=== PATIENT | female | born 1950 | race Caucasian/White ===

== ENCOUNTER 2016-07-16 20:22 | Emergency (ER) | payer MEDICARE ==
[~2016-07-16] VITALS: Ht 157.5 cm; Wt 70.0 kg
[~2016-07-16 20:22] MED LIST: ADLT ASA LOW81 MG PO; ASPIR-TRIN325 MG OR; ATENOLOL50 MG PO; BACTRIM DS1 TAB PO; CALCIUM + D600 MG PO; CALCIUM CHEL1 CAP PO; CINNAMON500 MG PO; CIPRO500 MG PO; CIPROFLOXACN500 MG PO; DITROPAN XL5 MG PO; FISH OIL1000 MG PO; KLOR-CON 1010 MEQ PO; LASIX20 MG PO; LIBRIUM10 MG PO; LIPITOR10 M1 PO; LISINOPRIL10 MG PO; LISINOPRIL20 MG PO; NITROLINGUAL SPRAY D TL; NORCO1 TA1 PO; ONDANSETRON4 MG PO; PAROXETINE20 MG PO; PAXIL40 MG PO; SIMVASTATIN40 MG PO; TENORMIN25 MG PO; TORADOL OR; TRAMADOL HCL50 MG PO; ULTRAM50 MG PO; VITAMIN B-1100 M1 PO; VITAMIN C1000 MG PO; WOMENS 50+ PO; ZINC PO; ZOLOFT50 MG PO; ZPAK PO
[2016-07-16 22:40] VITALS: BP 172/76
== END 2016-07-16 22:40 | disposition home or self-care (01) ==
LOC: ED 20:22
DX: I83.892 Varicose veins of left lower extremity with other complications (principal); E78.5 Hyperlipidemia, unspecified; F32.9 Major depressive disorder, single episode, unspecified; H91.91 Unspecified hearing loss, right ear; I25.2 Old myocardial infarction; Z95.5 Presence of coronary angioplasty implant and graft

== ENCOUNTER 2016-11-14 17:09 | Emergency (ER) | payer MEDICARE ==
[~2016-11-14] VITALS: Ht 157.5 cm; Wt 69.0 kg
[2016-11-14] MEDS ORDERED: AMLODIPINE5 MG PO (18:01)
[2016-11-14 18:05] VITALS: BP 175/76
== END 2016-11-14 18:11 | disposition home or self-care (01) ==
LOC: ED 17:09
DX: I10 Essential (primary) hypertension (principal); E78.5 Hyperlipidemia, unspecified; F32.9 Major depressive disorder, single episode, unspecified; I25.2 Old myocardial infarction; H91.91 Unspecified hearing loss, right ear; Z91.14 Patient's other noncompliance with medication regimen

== ENCOUNTER 2018-06-04 21:02 | Observation (INO) | payer MEDICARE ==
[~2018-06-04] VITALS: Ht 157.5 cm; Wt 63.5 kg
[~2018-06-04 21:02] MED LIST changes: +AMLODIPINE5 MG PO
[2018-06-04] MEDS ORDERED: ATENOLOL25 MG PO (21:26)
[2018-06-04 21:48] LABS: HEMATOCRIT 51.4 % (37.0-47.0); HEMOGLOBIN 16.9 g/dl (12.0-16.0); IMMATURE GRANULOCYTES 0.5 % (0.0-5.0); MEAN CELL VOLUME 99.6 fL CALC (80.0-100.0); MEAN CORPUSCULAR HGB 32.8 pG CALC (26.0-32.0); MEAN CORPUSCULAR HGB CONC 32.9 g/L CALC (32.0-36.0); NEUT# 6.82 thou/uL (2.00-7.15); RED BLOOD COUNT 5.16 mill/uL (4.20-5.60); RED CELL DISTRI WIDTH 20.9 % (11.5-15.5)
[2018-06-04 22:12] LABS: ALBUMIN 3.7 g/dL (3.2-5.0); ANION GAP 13 (6-22 (CALC)); BILIRUBIN, TOTAL 1.9 mg/dL (0.0-1.4); BUN 11 mg/dL (8-23); BUN/CREATININE RATIO 25 (12-20 (CALC)); CARBON DIOXIDE 29 mmol/l (22-30); CHLORIDE 103 mmol/l (95-108); CREATININE 0.4 mg/dL (0.5-1.0); GFR > 60 ML/MIN (>=60 (CALC)); GFR FOR AFR.AMER. > 60 ML/MIN (>=60 (CALC)); POTASSIUM 3.6 mmol/l (3.5-5.1); SGOT/AST 22 u/l (9-36); SODIUM 141 mmol/l (137-146); TOTAL PROTEIN 6.5 g/dL (6.3-8.2)
[2018-06-04 22:13] LABS: ALKALINE PHOSPHATASE 154 u/l (38-126)
[2018-06-04 22:24] LABS: MYOGLOBIN 29 ng/mL (0 - 62)
[2018-06-05 01:35] VITALS: BP 114/75
[2018-06-05 03:45] VITALS: BP 101/60
[2018-06-05 06:15] LABS: URINE BILIRUBIN - DIPSTICK NEGATIVE (NEGATIVE); URINE BLOOD DIPSTICK TRACE-INTACT (NEGATIVE); URINE COLOR YELLOW; URINE GLUCOSE - DIPSTICK NEGATIVE (NEGATIVE); URINE KETONE TRACE mg/dL (NEGATIVE); URINE PROTEIN - DIPSTICK NEGATIVE (NEG-TRACE); URINE UROBILINOGEN - DIPSTICK 0.2 E.U./dL (0.2)
[2018-06-05 06:25] LABS: URINE LEUK ESTERASE MODERATE (NEGATIVE); URINE NITRITE - DIPSTICK POSITIVE (Negative)
[2018-06-05 06:35] LABS: MAGNESIUM 1.9 mg/dL (1.6-2.3)
[2018-06-05 06:48] LABS: URINE BACTERIA MANY hpf; URINE RBC 0-2 RBC/hpf (0-5); URINE SQUAMOUS EPITHELIAL CELL FEW EPI/hpf (0-FEW); URINE WBC 20-50 WBC/hpf (0-5)
[2018-06-05 08:42] VITALS: BP 136/73
[2018-06-05 11:05] VITALS: BP 136/87
[2018-06-05 15:14] VITALS: BP 164/59
[2018-06-05] MEDS ORDERED: KEFLEX500 MG PO (16:01)
[2018-06-05 19:00] VITALS: BP 114/66
[2018-06-06 03:01] VITALS: BP 141/85
[2018-06-06 05:49] LABS: CHOLESTEROL HDL RATIO 3.1 (<4.4 (CALC))
[2018-06-06 08:31] VITALS: BP 121/68
[2018-06-06 11:49] VITALS: BP 144/80
[2018-06-06] MEDS ORDERED: CIPROFLOXACN500 MG PO (14:50)
== END 2018-06-06 15:49 | disposition home or self-care (01) ==
LOC: ED 21:02 → ED-I 23:44 → ED 06-05 00:19 → MS2 06-05 00:20
PROVIDERS: Emergency Medicine; ADMIT Internal Medicine; ATTEND Internal Medicine
DX: R07.89 Other chest pain (principal); I10 Essential (primary) hypertension; I25.10 Atherosclerotic heart disease of native coronary artery without angina pectoris; N39.0 Urinary tract infection, site not specified; M19.90 Unspecified osteoarthritis, unspecified site; I25.2 Old myocardial infarction; Z95.5 Presence of coronary angioplasty implant and graft; Z87.891 Personal history of nicotine dependence

== ENCOUNTER 2018-08-23 00:29 | Emergency (ER) | payer MEDICARE ==
[~2018-08-23] VITALS: Ht 157.5 cm; Wt 54.5 kg
[~2018-08-23 00:29] MED LIST changes: +ATENOLOL25 MG PO; +KEFLEX500 MG PO
[2018-08-23] MEDS ORDERED: PROZAC20 MG PO (00:50)
[2018-08-23 01:04] LABS: HEMATOCRIT 48.1 % (37.0-47.0); HEMOGLOBIN 17.1 g/dl (12.0-16.0); IMMATURE GRANULOCYTES 0.2 % (0.0-5.0); MEAN CELL VOLUME 104.6 fL CALC (80.0-100.0); MEAN CORPUSCULAR HGB 37.2 pG CALC (26.0-32.0); MEAN CORPUSCULAR HGB CONC 35.6 g/L CALC (32.0-36.0); NEUT# 7.05 thou/uL (2.00-7.15); RED BLOOD COUNT 4.6 mill/uL (4.20-5.60); RED CELL DISTRI WIDTH 15.5 % (11.5-15.5)
[2018-08-23 01:26] LABS: URINE BLOOD DIPSTICK TRACE-INTACT (NEGATIVE); URINE COLOR YELLOW; URINE GLUCOSE - DIPSTICK NEGATIVE (NEGATIVE); URINE KETONE TRACE mg/dL (NEGATIVE); URINE LEUK ESTERASE TRACE (NEGATIVE); URINE NITRITE - DIPSTICK NEGATIVE (Negative); URINE PH 5.5 (4.5-8.0); URINE PROTEIN - DIPSTICK 30 mg/dL (NEG-TRACE); URINE SPECIFIC GRAVITY >=1.030
[2018-08-23 01:27] LABS: URINE BILIRUBIN - DIPSTICK LARGE (NEGATIVE)
[2018-08-23 01:49] LABS: ALBUMIN 3.7 g/dL (3.2-5.0); ALKALINE PHOSPHATASE 113 u/l (38-126); BUN 11 mg/dL (8-23); BUN/CREATININE RATIO 15 (12-20 (CALC)); CHLORIDE 96 mmol/l (95-108); CREATININE 0.8 mg/dL (0.5-1.0); GFR > 60 ML/MIN (>=60 (CALC)); GFR FOR AFR.AMER. > 60 ML/MIN (>=60 (CALC)); SODIUM 136 mmol/l (137-146); TOTAL PROTEIN 6.3 g/dL (6.3-8.2)
[2018-08-23 01:54] LABS: URINE SQUAMOUS EPITHELIAL CELL MODERATE EPI/hpf (0-FEW)
[2018-08-23 01:55] LABS: ANION GAP 21 (6-22 (CALC)); BILIRUBIN, TOTAL 1.7 mg/dL (0.0-1.4); CARBON DIOXIDE 23 mmol/l (22-30); POTASSIUM 4.3 mmol/l (3.5-5.1); SGOT/AST 144 u/l (9-36); URINE BACTERIA RARE hpf
[2018-08-23 02:02] LABS: MYOGLOBIN 196 ng/mL (0 - 62)
[2018-08-23 03:18] LABS: INTERNATIONAL NORMALIZED RATIO 1.2 RATIO (0.7-1.3); PROTHROMBIN TIME 12.9 SECONDS (9.0-12.5)
[2018-08-23 04:20] VITALS: BP 124/91
== END 2018-08-23 04:19 | disposition short-term general hospital (02) ==
LOC: ED 00:29
PROVIDERS: Emergency Medicine
DX: I21.4 Non-ST elevation (NSTEMI) myocardial infarction (principal); N39.0 Urinary tract infection, site not specified; I10 Essential (primary) hypertension; I25.10 Atherosclerotic heart disease of native coronary artery without angina pectoris; I25.2 Old myocardial infarction
CPT/HCPCS: J1644

== ENCOUNTER 2018-10-03 15:41 | Inpatient (IN) | payer MEDICARE ==
[~2018-10-03] VITALS: Ht 157.5 cm; Wt 55.8 kg
[~2018-10-03 15:41] MED LIST changes: +PROZAC20 MG PO
[2018-10-03 16:00] VITALS: BP 90/54
--- NOTE | 2018-10-03 16:00 | NUR ---
PT TO UNIT VIA WHEELCHAIR ACCOMPNIED BY VOLUNTEER AND CAREGIVER. PT ABLE TO STATE FIRST NAME ONLY. UNABLE TO REORIENT PATIENT. CAREGIVER ABLE TO GIVE HISTORY. ADMISSION ASSESSMENT COMPLETED AT THIS TIME. IV STARTED. BED ALARM IN PLACE FOR PATIENT SAFETY. CALL LIGHT IN REACH. WILL CONTINUE TO MONITOR.
[2018-10-03] MEDS ORDERED: ASPIRIN81 MG PO (16:09)
[2018-10-03] MEDS ORDERED: ATORVASTATIN CA80 MG PO (16:09)
[2018-10-03] MEDS ORDERED: CARVEDILOL6.25 MG PO (16:10)
[2018-10-03] MEDS ORDERED: OXYBUTYNIN5 M1 PO (16:11)
[2018-10-03] MEDS ORDERED: LISINOPRIL2.5 MG PO (16:11)
[2018-10-03] MEDS ORDERED: FOLIC ACID1 MG PO (16:11)
[2018-10-03] MEDS ORDERED: SEROQUEL25 MG PO (16:12)
[2018-10-03] MEDS ORDERED: SPIRONOLACTONE25 MG PO (16:12)
--- NOTE | 2018-10-03 16:30 | NUR ---
PHONED DR BATEMAN TO LET HIM KNOW THAT THE CAREGIVER STATED THAT PATIENT WILL PUT KNIFE TO THROAT IF GIVEN KNIFE. NO NEW ORDERS RECEIVED.
--- NOTE | 2018-10-03 17:00 | NUR ---
PT TO CT VIA WC ACCOMPANIED BY RN
--- NOTE | 2018-10-03 17:15 | NUR ---
PT RETURNED FROM RADIOLOGY VIA .
--- NOTE | 2018-10-03 17:15 | NUR ---
RT AT BEDSIDE TO COMPLETE EKG AT THIS TIME
--- NOTE | 2018-10-03 17:20 | NUR ---
DR BATEMAN AT BEDSIDE AT THIS TIME
[2018-10-03 17:23] LABS: ALBUMIN 4.2 g/dL (3.2-5.0); ALKALINE PHOSPHATASE 117 u/l (38-126); BUN 19 mg/dL (8-23); BUN/CREATININE RATIO 29 (12-20 (CALC)); CARBON DIOXIDE 27 mmol/l (22-30); CHLORIDE 107 mmol/l (95-108); CREATININE 0.7 mg/dL (0.5-1.0); GFR > 60 ML/MIN (>=60 (CALC)); GFR FOR AFR.AMER. > 60 ML/MIN (>=60 (CALC)); TOTAL PROTEIN 7.3 g/dL (6.3-8.2)
[2018-10-03 17:26] LABS: ANION GAP 14 (6-22 (CALC)); BILIRUBIN, TOTAL 0.6 mg/dL (0.0-1.4); SGOT/AST 29 u/l (9-36); SODIUM 144 mmol/l (137-146)
--- NOTE | 2018-10-03 17:46 | NUR ---
PT SET UP FOR PM MEAL
--- NOTE | 2018-10-03 18:00 | NUR ---
APARICIO PLACED USING STERILE TECHNIQUE IMMEADIATE RETURN OF URINE. PT TOLERATED WELL.
--- NOTE | 2018-10-03 18:20 | NUR ---
PT HAVING VISUAL AND AUDITORY HALLUCINATIONS.
[2018-10-03 18:21] LABS: URINE BILIRUBIN - DIPSTICK NEGATIVE (NEGATIVE); URINE BLOOD DIPSTICK SMALL (NEGATIVE); URINE CLARITY CLOUDY; URINE COLOR YELLOW; URINE GLUCOSE - DIPSTICK NEGATIVE (NEGATIVE); URINE KETONE NEGATIVE (NEGATIVE); URINE LEUK ESTERASE MODERATE (Negative); URINE NITRITE - DIPSTICK POSITIVE (Negative); URINE PH 6.5 (4.5-8.0); URINE PROTEIN - DIPSTICK TRACE mg/dL (NEG-TRACE); URINE SPECIFIC GRAVITY 1.015; URINE UROBILINOGEN - DIPSTICK 0.2 E.U./dL (0.2)
[2018-10-03 18:25] LABS: BARBITURATES NEGATIVE (NEGATIVE); COCAINE NEGATIVE (NEGATIVE); METHADONE NEGATIVE (NEGATIVE); OXCYCODONE NEGATIVE (NEGATIVE); TETRAHYDROCANNABIONOL NEGATIVE (NEGATIVE); TRICYLIC ANTIDEPRESSANTS NEGATIVE (NEGATIVE)
[2018-10-03 18:31] LABS: URINE SQUAMOUS EPITHELIAL CELL FEW EPI/hpf (0-FEW); URINE WBC TNTC WBC/hpf (0-5)
--- NOTE | 2018-10-03 19:20 | NUR ---
PATIENT IS LAYING SUPINE. ON ROOM AIR. IS AWAKE AND ONLY ORIENTEED TO HER . DOES NOT FOLLOW DIRECTIONS, IS ABLE TO MOVE ALL EXTREMITIES, MOVES AROUND IN BED, DOES NOT STAY STILL. NO RESPIRATORY DISTRESS NOTED. HEAD TO TOE NURSING ASSESSMENT PERFORMED. CORNER OF R-EYE IS BRUISED, NOT OPEN. APARICIO CATHETER INTACT, DRAINS YELLOW AND CLOUDY URINE. PATIENT SELF REPOSITIONS. POC FOR TONIGHT EXPLAINED TO PATIENT. BED ALARM ON. LAC IV INTACT AND HAS BANANA BAG INFUSING AT 100 ML/HR. PATIENT HAS BEEN REORIENTED AND REASSURED. CALL LIGHT WITHIN REACH. WILL CONTINUE TO MONITOR.
[2018-10-03 20:52] VITALS: BP 124/60
--- NOTE | 2018-10-03 21:49 | NUR ---
patient pulling off blankets, wrist bands. pulled on iv and it started leaking. new lfa 20 g started, intact. bed alarm on. patient remians confused. was reorieneted and reassured. will continue to monitor.
--- NOTE | 2018-10-03 22:04 | NUR ---
PATIENT ABLE TO TOLERATE BEDTIME MEDICATIONS WILL APPLESAUCE, HAS TO BE CUED EACH TIME. REFUSED TO DRINK WATER. PATIENT REORIENTED AND REASSURED. BED ALARM ON. WILL CONTINUE TO MONITOR.
--- NOTE | 2018-10-04 00:05 | NUR ---
patient laying supine, continues with confused conversations, she talks by herself. no acute distress shown. gaona catheter intact. self repositions from side to side. bed alarm on. will continue to monitor.
[2018-10-04 00:27] VITALS: BP 135/74
--- NOTE | 2018-10-04 01:59 | NUR ---
PATIENT KEPT STICKING FEET OUT OF BED, TRYING TO GET UP. NOW RESTING WITH EYES CLOSED. WILL CONTINUE TO MONITOR.
--- NOTE | 2018-10-04 04:00 | NUR ---
PATIENT LAYING ON HER RIGHT SIDE, EYES CLOSED. AROUSES EASILY WITH VERBAL STIMULI. CALL LIGHT WITHIN REACH. WILL CONTINUE TO MONITOR.
[2018-10-04 04:23] VITALS: BP 126/82
[2018-10-04 05:10] LABS: IMMATURE GRANULOCYTES 0.1 % (0.0-5.0); MEAN CELL VOLUME 103.5 fL CALC (80.0-100.0); MEAN CORPUSCULAR HGB 36.5 pG CALC (26.0-32.0); MEAN CORPUSCULAR HGB CONC 35.3 g/L CALC (32.0-36.0); NEUT# 3.69 thou/uL (2.00-7.15); RED BLOOD COUNT 3.67 mill/uL (4.20-5.60); RED CELL DISTRI WIDTH 13.1 % (11.5-15.5)
[2018-10-04 05:23] LABS: HEMOGLOBIN 13.4 g/dl (12.0-16.0)
[2018-10-04 05:43] LABS: ALBUMIN 3.4 g/dL (3.2-5.0); ALKALINE PHOSPHATASE 87 u/l (38-126); ANION GAP 9 (6-22 (CALC)); BILIRUBIN, TOTAL 0.5 mg/dL (0.0-1.4); BUN 14 mg/dL (8-23); BUN/CREATININE RATIO 27 (12-20 (CALC)); CALCULATED LDLCHOLESTEROL 78 mg/dL (62-129 (CALC)); CARBON DIOXIDE 29 mmol/l (22-30); CHLORIDE 110 mmol/l (95-108); CHOLESTEROL HDL RATIO 2.9 (<4.4 (CALC)); CREATININE 0.5 mg/dL (0.5-1.0); GFR > 60 ML/MIN (>=60 (CALC)); GFR FOR AFR.AMER. > 60 ML/MIN (>=60 (CALC)); HDL CHOLESTEROL 50 mg/dL (>=40); POTASSIUM 3.7 mmol/l (3.5-5.1); SGOT/AST 23 u/l (9-36); SODIUM 144 mmol/l (137-146); TOTAL CHOLESTEROL 143 mg/dl (0-199); TOTAL PROTEIN 6.1 g/dL (6.3-8.2); TOTAL TRIGLYCERIDES 72 mg/dl (30-149); VLDL CHOLESTROL 14 mg/dl (1-41 (CALC))
--- NOTE | 2018-10-04 06:22 | NUR ---
patient is laying on her right side, arouses easily to verbal and noise stimuli. continues to talk confused conversations, not understandable at times. bed alarm is on. call light within reach.
--- NOTE | 2018-10-04 06:45 | NUR ---
RECIEVED REPORT FROM MAEGAN DAVISON. ASSUMED PT CARE.
--- NOTE | 2018-10-04 07:00 | NUR ---
PT RESTING IN BED WITH EYES CLOSED. PT UNCOOPERATIVE WITH ASSESSMENT. ALERT TO SELF ONLY. STAFF MUST ANTICIPATE NEEDS, APARICIO REMAINS PATENT DRAINING TO BSD VIA GRAVITY, DARK YELLOW URINE. PT MUMBLING, SPEECH GARBLED, UNABLE TO MAKE SENSE OF SPEECH. PT REPOSITIONED. CALL LIGHT IN REACH. BED ALARM IN PLACE. WILL MONITOR CLOSELY.
[2018-10-04 08:00] VITALS: BP 126/82
--- NOTE | 2018-10-04 08:12 | NUR ---
DR. BATEMAN AT BEDSIDE FOR ASSESSMENT AND TO DISCUSS PLAN OF CARE. NEW ORDERS RECIEVED.
--- NOTE | 2018-10-04 08:21 | NUR ---
PT PUULING AT EQUIPMENT, TAKING COVERS OFF, KICKING LEGS OVER BED ATTEMPTING TO GET OUT OF BED, PT REDIRECTED, CONTINUES WITH MUMBLED SPEECH. BED ALARM IN PLACE. WILL MONITOR.
--- NOTE | 2018-10-04 10:00 | NUR ---
pt off unit to mri.
--- NOTE | 2018-10-04 10:30 | NUR ---
PT UNCOOPERATIVE WITH MRI, UNABLE TO STAY STILL. PT BACK TO ICU UNIT, TRANSFERRED BACK TO BED. CALL LIGHT IN REACH. WILL MONITOR CLOSELY.
[2018-10-04 12:00] VITALS: BP 122/76
--- NOTE | 2018-10-04 12:00 | NUR ---
LESLY HELLER AT BEDSIDE. PT RESTING WITH EYES CLOSED. PINA LEFT $2 LLANOS FOR PT TO GET COKE WHEN AWAKE AND ABLE. NO DISTRESS NOTED AT THIS TIME. CALL LIGHT IN REACH. MONITORING CLOSELY.
[2018-10-04 16:12] VITALS: BP 120/68
--- NOTE | 2018-10-04 16:15 | NUR ---
PT REMAINS RESTING WITH EYES CLOSED, RESPIRATIONS EVEN/UNLABORED. APARICIO REMAINS PATENT, DRAINING TO BSD VIA GRAVITY. CALL LIGHT IN REACH. WILL CONTINUE TO MONITOR.
--- NOTE | 2018-10-04 16:48 | NUR ---
DR. BATEMAN AT BEDSIDE FOR ASSESSMENT AND TO DISCUSS PLAN OF CARE. NO NEW ORDERS.
--- NOTE | 2018-10-04 18:56 | NUR ---
BEDSIDE REPORT RECEIVED FROM MAEGAN JENKINS.
--- NOTE | 2018-10-04 19:13 | NUR ---
PT RESTING IN BED SUPINE; ALERT AND DISORIENTED. WAS ABLE TO STATE HER NAME AFTER BEING ASKED 3 TIMES; REPLYS TO QUESTIONS WITH UNRELATED STATEMENTS. WHEN ASKED HER NAME SHE INITIALLY REPLYED, "YOUR MOTHER TAKES INSULIN? I HOPE SHE'S FEELING BETTER." WHEN ASKED IF SHE IS HAVING PAIN PT RESPONDS, "NO I DON'T HAVE ANY, BUT DO YOU WANT SOME?" AND STARTS LAUGHING. NO SINGS OF DISTRESS. RESPIRATIONS EVEN AND UNLABORED ON ROOM AIR. VSS BLOOD PRESSURE 140/69. BANANA BAG INFUSING WITHOUT DIFFICULTY; IV SITE APPEARS HEALTHY AND SECURED WITH COBAN. APARICIO DRAINING CLEAR DARK YELLOW URINE. ASSESSMENT COMPLETED AT THIS TIME. LUNGS CLEAR, DISCOLORATIONS TO RIGHT EYE AND LEFT UPPER ARM, WEAK PEDAL PULSES. UNABLE TO DISCUSS PLAN OF CARE OR EDUCATE DUE TO COGNITIVE LIMITATIONS. SAFETY MEASURES IN PLACE INCLUDING BED ALARM. CALL LIGHT WITHIN REACH.
[2018-10-04 19:18] VITALS: BP 140/69
--- NOTE | 2018-10-04 20:04 | NUR ---
PT FOUND WITH GOWN REMOVED; COBAN AT IV SITE DISTURBED AND IV SITE INFILTRATED. PT VERY TALKATIVE AND LAUGHING, BUT WITHOUT TRAIN OF THOUGHT AND MAKING RANDOM STATEMENTS. REMINDED PT TO LEAVE ATTACHMENTS AND GOWN IN PLACE. NEW IV SITE STARTED TO RFA AND IV FLUIDS NOW INFUSING WITHOUT DIFFICULTY. WILL CONTINUE TO MONITOR.
--- NOTE | 2018-10-04 20:32 | NUR ---
PT TALKING TO HERSELF AND REACHING UP INTO THE AIR LIKE SHE IS PICKING THINGS; PM MEDICATIONS GIVEN INCLUDING SCHEDULED ATIVAN AND PRN SEROQUEL; MEDS GIVEN IN APPLESAUCE, PT HAD DIFFICULTY TAKING DIRECTION TO SWALLOW PILLS.
--- NOTE | 2018-10-04 21:27 | NUR ---
NEW ORDER FOR ROCEPHIN FOR UTI; INFUSING NOW.
--- NOTE | 2018-10-04 21:53 | NUR ---
PT ASLEEP AT THIS TIME WITH NO SIGNS OF DISTRESS. NEEDS ANTICIPATED BY STAFF.
--- NOTE | 2018-10-04 23:28 | NUR ---
PT NOW AWAKE AND TALKING TO HERSELF IN A QUIET VOICE. IV SITE AND APARICIO REMAIN INTACT.
--- NOTE | 2018-10-05 01:48 | NUR ---
PT ASLEEP SUPINE WITH NO SIGNS OF DISTRESS. APARICIO DRAINING CLOUDY DARK YELLOW URINE IN ADEQUATE AMOUNTS. BED ALARM ON. SAFETY MEASURES IN PLACE. CALL LIGHT WITHIN REACH.
[2018-10-05 05:02] VITALS: BP 149/70
--- NOTE | 2018-10-05 05:16 | NUR ---
COMPLETE BED BATH GIVEN; LINENS CHANGED; ORAL HYGIENE PROVIDED. PT AWAKE; MUMBLES INCOHERENTLY AT TIMES; WHEN UNDERSTOOD PT MAKING RANDOM STATEMENTS AND CHUCKLING. NO ACUTE CHANGES IN CONDITION NOTED THROUGHOUT THE NIGHT.
--- NOTE | 2018-10-05 05:51 | NUR ---
RT AT BEDSIDE FOR EKG.
--- NOTE | 2018-10-05 07:20 | NUR ---
LAB AT BEDSIDE AT THIS TIME. REPORT CALLED TO [facility] ON [employer]
[2018-10-05 07:25] VITALS: BP 152/67
--- NOTE | 2018-10-05 07:25 | NUR ---
PT RESTING IN BED AWAKE. PT IS ALERT AND ORIENTED TO SELF. PT ABLE TO STATE NAME AND . REORIENTATION TO PLACE AND TIME UNSUCCESSFUL. SHIFT ASSESSMENT COMPLETED AT THIS TIME. IV PATENT X1. BED ALARM ON FOR PATIENT SAFETY. CALL LIGHT IN REACH. WILL CONTINUE TO MONITOR.
[2018-10-05 07:33] LABS: HEMATOCRIT 39.7 % (37.0-47.0); HEMOGLOBIN 13.6 g/dl (12.0-16.0); IMMATURE GRANULOCYTES 0.3 % (0.0-5.0); MEAN CELL VOLUME 99.7 fL CALC (80.0-100.0); MEAN CORPUSCULAR HGB 34.2 pG CALC (26.0-32.0); MEAN CORPUSCULAR HGB CONC 34.3 g/L CALC (32.0-36.0); NEUT# 4.26 thou/uL (2.00-7.15); RED BLOOD COUNT 3.98 mill/uL (4.20-5.60); RED CELL DISTRI WIDTH 12.8 % (11.5-15.5)
--- NOTE | 2018-10-05 07:35 | NUR ---
PT SET UP FOR AM MEAL AT THIS TIME
--- NOTE | 2018-10-05 08:09 | NUR ---
DR BATEMAN AT BEDSIDE.
[2018-10-05 08:23] LABS: ANION GAP 9 (6-22 (CALC)); BUN 7 mg/dL (8-23); BUN/CREATININE RATIO 17 (12-20 (CALC)); CARBON DIOXIDE 26 mmol/l (22-30); CHLORIDE 111 mmol/l (95-108); CREATININE 0.4 mg/dL (0.5-1.0); GFR > 60 ML/MIN (>=60 (CALC)); GFR FOR AFR.AMER. > 60 ML/MIN (>=60 (CALC)); POTASSIUM 3.9 mmol/l (3.5-5.1); SODIUM 143 mmol/l (137-146)
--- NOTE | 2018-10-05 10:28 | NUR ---
FAUSTO WOODSON AT BEDSIDE. REQUESTED UPDATE. UPDATE PROVIDED.
--- NOTE | 2018-10-05 11:41 | NUR ---
PT SET UP FOR NOON MEAL
--- NOTE | 2018-10-05 12:16 | NUR ---
PT THREW LUNCH TRAY OFF OF TABLE. ASKED PT IF SHE DID NOT WANT LUNCH PT DID NOT ANSWER QUESTION JUST RAMBLED.
--- NOTE | 2018-10-05 15:28 | NUR ---
pt resting in bed awake. assessment remains unchanged. pt only oriented to self. pt continues to try and climb out of bed and pull at iv. call light in reach. will continue to monitor.
[2018-10-05 16:50] VITALS: BP 154/78
--- NOTE | 2018-10-05 17:37 | NUR ---
PT SET UP FOR PM MEAL
[2018-10-05 19:10] VITALS: BP 127/67
--- NOTE | 2018-10-05 19:10 | NUR ---
awake. confused. unable to reorient. incont of brown watery stool. assisted to bsc x2 assists. had large brown formed stool then back to bed. bed alarm reactivated. #22 rfa d51/2ns infusing @ 100cchr. gaona cath in place. urine cloudy yellow. fall precautions cont.
--- NOTE | 2018-10-05 20:45 | NUR ---
report received from zac das. patient laying with hob 30 degrees, resting with eyes closed. no acute distress. on room air. gaona catheter intact. call light within reach. bed alarm is on. will continue to monitor.
--- NOTE | 2018-10-05 22:00 | NUR ---
patient continues to rest with eyes closed. no acute distress shown. bed alarm on. will continue to monitor.
--- NOTE | 2018-10-05 22:58 | NUR ---
patient able to tolerate bedtime medications, swallows medication with applesauce. is able to tolerate water, no difficulty observed. call light within reach. will continue to monitor.
--- NOTE | 2018-10-06 | NUR ---
patient tries to get out of bed, has confused conversations. does not follow directions thoroughly, does not answer questions asked. reorientation unsuccessful. bed alarm on. call light within reach. will continue to monitor.
[2018-10-06 00:48] VITALS: BP 148/83
--- NOTE | 2018-10-06 02:08 | NUR ---
patient continues to attempt to get out of bed, does not follow directions, has confused conversations. reorientation unsuccessful. bed alarm on. will continue to monitor.
[2018-10-06 04:25] VITALS: BP 155/83
--- NOTE | 2018-10-06 04:32 | NUR ---
patient is awake, confused. sticks feet out of bed. moves side to side in bed. denies pain. on room air, sats 98%. afebrile. reorientation unsuccessful, patient has confused conversations. gaona catheter intact. urine is yellow and cloudy. patient states, "i'm cold," and has gown off and blankets off. patient has been repoitioned properly and 2 blankets placed on top. karla continue to monitor.
--- NOTE | 2018-10-06 06:06 | NUR ---
patient tries to get out of the bed. bed larm is on. she does not follow directions. she pulls off her gown. tries to pull at iv line. patient repositioned. will continue to monitor.
[2018-10-06 06:08] LABS: URINE BILIRUBIN - DIPSTICK NEGATIVE (NEGATIVE); URINE BLOOD DIPSTICK NEGATIVE (NEGATIVE); URINE COLOR YELLOW; URINE GLUCOSE - DIPSTICK NEGATIVE (NEGATIVE); URINE KETONE NEGATIVE (NEGATIVE); URINE LEUK ESTERASE TRACE (Negative); URINE NITRITE - DIPSTICK NEGATIVE (Negative); URINE PH 6.5 (4.5-8.0); URINE PROTEIN - DIPSTICK NEGATIVE (NEG-TRACE); URINE SPECIFIC GRAVITY <=1.005; URINE UROBILINOGEN - DIPSTICK 0.2 E.U./dL (0.2)
[2018-10-06 06:24] LABS: URINE CLARITY CLEAR
--- NOTE | 2018-10-06 07:00 | NUR ---
PT RESTING IN BED AWAKE TALKING ALOUD IN ROOM IN INCOHERENT SENTENCES. PT IS ALERT AND ABLE TO STATE NAME AND PARTIAL . SHIFT ASSESSMENT COMPLETED AT THIS TIME. IV PATENT AT THIS TIME. CALL LIGHT IN REACH. WILL CONTINUE TO MONITOR.
--- NOTE | 2018-10-06 07:15 | NUR ---
PT CONTINUOUSLY TRYING TO GET OUT OF BED AND TRYING TO PULL AT EQUIPMENT AT THIS TIME. PATIENT REACHING TO AIR IF PICKING AT THINGS. PATIENT HAVING CONVERSATIONS IN ROOM ALOUD TO SELF. PHONE CALL PLACED TO DR BATEMAN AWAITING ORDERS.
--- NOTE | 2018-10-06 07:20 | NUR ---
AM SEROQUEL GIVEN PER MAR FOR HALLUCINATIONS.
--- NOTE | 2018-10-06 12:15 | NUR ---
PT RESTING IN BED WITH EYES CLOSED. RESPIRATIONS EVEN AND UNLABORED. SAFETY PRECAUTIONS IN PLACE. WILL CONTINUE TO MONITOR.
--- NOTE | 2018-10-06 16:14 | NUR ---
PT RESTING BED WITH EYES CLOSED. RESPIRATIONS EVEN AND UNLABORED ON RA, NO S/S OF DISTRESS AT THIS TIME. BED ALARM ACTIVE FOR PT SAFETY. WILL CONTINUE TO MONITOR.
[2018-10-06 19:10] VITALS: BP 158/75
--- NOTE | 2018-10-06 19:10 | NUR ---
awake. confused. unable to reorient. requires total care all needs. gaona cath in place. urine cloudy. gaona bag emptied. iv pump cleared. fall precautions cont. bed alarm on.
--- NOTE | 2018-10-06 22:00 | NUR ---
awake. has attempted several times to get oob. bed alarm cont.
--- NOTE | 2018-10-06 23:30 | NUR ---
eyes closed. no distress.
--- NOTE | 2018-10-07 01:00 | NUR ---
awake. remains confused. cont to try & get oob. bed alarm cont.
--- NOTE | 2018-10-07 03:55 | NUR ---
bed alarm sounding the pt fell on floor. gaona cath out. no apparent injury. assisted to bed. t97.0 p78 r18 bp155/67. bed alarm reactivated.
[2018-10-07 04:00] VITALS: BP 155/67
--- NOTE | 2018-10-07 05:10 | NUR ---
rt here. ekg obtained.
--- NOTE | 2018-10-07 05:30 | NUR ---
lab here. blood drawn.
[2018-10-07 05:46] LABS: HEMATOCRIT 40.5 % (37.0-47.0); HEMOGLOBIN 14.4 g/dl (12.0-16.0); IMMATURE GRANULOCYTES 1.4 % (0.0-5.0); MEAN CORPUSCULAR HGB 35.9 pG CALC (26.0-32.0); MEAN CORPUSCULAR HGB CONC 35.6 g/L CALC (32.0-36.0); NEUT# 6.08 thou/uL (2.00-7.15); RED BLOOD COUNT 4.01 mill/uL (4.20-5.60); RED CELL DISTRI WIDTH 12.7 % (11.5-15.5)
--- NOTE | 2018-10-07 05:50 | NUR ---
day shift sitter here.
[2018-10-07 06:13] LABS: ANION GAP 9 (6-22 (CALC)); BUN 6 mg/dL (8-23); BUN/CREATININE RATIO 15 (12-20 (CALC)); CARBON DIOXIDE 25 mmol/l (22-30); CHLORIDE 111 mmol/l (95-108); CREATININE 0.4 mg/dL (0.5-1.0); GFR > 60 ML/MIN (>=60 (CALC)); GFR FOR AFR.AMER. > 60 ML/MIN (>=60 (CALC)); POTASSIUM 4.6 mmol/l (3.5-5.1); SODIUM 141 mmol/l (137-146)
--- NOTE | 2018-10-07 06:55 | NUR ---
REPORT RECVD FROM LISA PERDOMO AT START OF SHIFT.
--- NOTE | 2018-10-07 07:15 | NUR ---
PT CLEANED AFTER BM.
--- NOTE | 2018-10-07 07:54 | NUR ---
PT FEED BREAKFAST. A&Ox1- RESPONDS TO NAME. PT HALLUCINATING AND SPEAKING CLEAR WORD SALAD. KAROL @BEDSIDE.
[2018-10-07 08:00] VITALS: BP 144/76
--- NOTE | 2018-10-07 08:00 | NUR ---
DR BATEMAN @BEDSIDE WITH PT. & SITTER.
--- NOTE | 2018-10-07 11:00 | NUR ---
PT FREQUENTLY TRYING TO CLIMB OUT OF BED. PT HALUCINATING; PICKING AT THE AIR AND TALKING TO PEOPLE NOT IN THE ROOM. SITTER @BEDSIDE.
[2018-10-07 12:00] VITALS: BP 157/80
--- NOTE | 2018-10-07 12:00 | NUR ---
SITTER FEEDING PT LUNCH.
--- NOTE | 2018-10-07 12:11 | NUR ---
SITTER @BEDSIDE, FEEDING PT. PT COOPERATIVE & FRIENDLY WITH STAFF. INAPPROPRIATE CONVERSATIONS.
--- NOTE | 2018-10-07 13:38 | NUR ---
PT REMOVING HER GOWN, TRYING TO SLING HER LEGS OVER SIDE OF BED. SITTER @BEDSIDE REDIRECTING.
--- NOTE | 2018-10-07 15:38 | NUR ---
PT APPEARS RESTFUL AT THIS TIME. SITTER @BEDSIDE. WILL CONTINUE TO MONITOR.
[2018-10-07 16:00] VITALS: BP 144/75
--- NOTE | 2018-10-07 16:50 | NUR ---
PT SCREAMING DURING BED BATH & LINEN CHANGE. PT REMAINS CONFUSED. SITTER IN ROOM.
--- NOTE | 2018-10-07 19:00 | NUR ---
report given to german forbes rn.
--- NOTE | 2018-10-07 19:10 | NUR ---
REPORT RECEIVED FROM MAEGAN LOZA.
--- NOTE | 2018-10-07 19:40 | NUR ---
to medsurg per bed to room 280 accompanied by ban.
--- NOTE | 2018-10-07 19:42 | NUR ---
PT ARRIVED TO THE ROOM VIA BED, ACCOMPANIED BY TRELL AND METALLURGICAL LABORATORY ASSISTANT. PT CONFUSED. RESPIRATIONS EVEN AND UNLABORED ON RA. LUNGS SOUND CLEAR. PEDAL PULSES STRONG. #22 RFA APPEARS TO BE INFULTRATED, IV REMOVED, TO BE NOTIFIED. ONE TO ONE SITTER PRESENT FOR PT SAFETY. BED IN LOWEST POSITION. WILL CONTINUE TO MONITOR.
[2018-10-07 20:16] VITALS: BP 147/79
--- NOTE | 2018-10-08 00:33 | NUR ---
PT RESTING IN BED. PT CONFUSED. SITTER AT BEDSIDE FOR PT SAFETY. WILL CONTINUE TO MONITOR.
--- NOTE | 2018-10-08 04:56 | NUR ---
PT IS CONFUSED. PT URINATED IN BED, LINENS CHANGED AND PT CLEANED UP. ONE TO ONE SITTER AT BEDSIDE. WILL CONTINUE TO MONITOR.
[2018-10-08 05:01] VITALS: BP 165/85
--- NOTE | 2018-10-08 07:05 | NUR ---
PT REPORT RECIEVED FROM MAEGAN BENSON. PT RESTING. NO S/S OF DISRESS. SITTER AT BEDSIDE. CALL LIGHT IN REACH. WILL CONTINUE TO MONITOR.
[2018-10-08 08:19] VITALS: BP 150/74
--- NOTE | 2018-10-08 08:19 | NUR ---
PT ALERT TO SELF. RESP EVEN AND UNLABORED. LUNG SOUNDS CLEAR/DIMINISHED. BOWEL SOUNDS ACTIVE. WEAK RADIAL/PEDAL PULSES. RT EYE BRUISED. SKIN INTACT. PT DENIES ANY PAIN OR NEEDS. POC DISCUSSED. SAFETY PRECAUTIONS IN PLACE. SITTER AT BEDSIDE. CALL LIGHT IN REACH. WILL CONTINUE TO MONITOR.
--- NOTE | 2018-10-08 12:00 | NUR ---
PT SLEEPING. NON S/S OF DISTRESS. CALL LIGHT IN REACH. WILL CONTINUE TO MONITOR.
[2018-10-08 15:09] VITALS: BP 158/66
--- NOTE | 2018-10-08 16:42 | NUR ---
PT LYING IN BED. NO C/O PAIN OR NEEDS. SITTER AT BEDSIDE. CALL LIGHT IN REACH. WILL CONTINUE TO MONITOR.
--- NOTE | 2018-10-08 19:30 | NUR ---
PT. ALERT TO SELF ONLY AND IS CONFUSED. ASSESSMENT COMPLETED. SKIN TEAR TO LEFT ELBOW NOTED; DRY AND RELATIONSHIP ASSOC. SITTER IS AT BEDSIDE. NO DISTRESS NOTED. WILL CONITNUE TO MONITOR. CALL LIGHT IS IN REACH.
[2018-10-08 19:34] VITALS: BP 111/61
--- NOTE | 2018-10-08 20:46 | NUR ---
SCHED MEDS GIVEN. PT. REMAINS CONFUSED AND RAMBLING ON. CALL LIGHT IS IN REACH. SITTER AT BEDSIDE.
--- NOTE | 2018-10-08 23:06 | NUR ---
PT. GRABBING AT THINGS IN THE AIR AND CONTINUING TO GET OOB; RELAXATION TECHNIQUES IMPLEMENTED AND RE-DIRECTION AND AREA UNSUCCESSFUL. PT. MEDICATED WITH ORDERED SEROQUEL PER ORDER. SITTER REMAINS AT BEDSIDE.
--- NOTE | 2018-10-09 00:58 | NUR ---
RESTING IN BED WITH EYES CLOSED; RESP. EVEN AND UNLABORED. SITTER AT BEDSIDE.
--- NOTE | 2018-10-09 04:00 | NUR ---
PT. RESTING IN BED WITH EYES CLOSED; RESP. EVEN AND UNLABORED; SITTER REMAINS AT BEDSIDE.
[2018-10-09 04:18] VITALS: BP 141/74
--- NOTE | 2018-10-09 07:05 | NUR ---
PT REPORT RECIEVED FROM LISA PHILLIPS. PT RESTING. NO S/S OF DISTRESS. CALL LIGHT IN REACH. WILL CONTINUE TO MONITOR.
[2018-10-09 07:42] VITALS: BP 124/64
--- NOTE | 2018-10-09 07:45 | NUR ---
PT ALER TO SELF. BOWEL SOUNDS ACTIVE X4. WEAK RADIAL/PEDAL PULSES. RT EYE BRUISED. NO IV SITE. PT DENIES ANY PAIN OR NEEDS. SITTER AT BEDSIDE. CALL LIGHT IN REACH. WILL CONTINUE TO MONITOR.
--- NOTE | 2018-10-09 11:43 | NUR ---
PT WATCHING TELEVISION. NO C/O PAIN OR NEEDS. CALL LIGHT IN REACH. WILL CONTINUE TO MONITOR.
--- NOTE | 2018-10-09 15:34 | NUR ---
PT LYING IN BED. NO C/O PAIN OR NEEDS. SITTER AT BEDSIDE. CALL LIGHT IN REACH. WILL CONTINUE TO MONITOR.
--- NOTE | 2018-10-09 16:45 | NUR ---
PT EATING CHEESEBURGER FROM OUTSIDE. DENIES ANY NEEDS OR COMPLAINTS.
[2018-10-09 19:07] VITALS: BP 145/67
--- NOTE | 2018-10-09 19:10 | NUR ---
REPORT RECEIVED FROM LISA BASHIR. PT RESTING IN BED. PT IS CONFUSED. SITTER AT BEDSIDE FOR PT SAFETY. WILL CONTINUE TO MONITOR.
--- NOTE | 2018-10-09 19:55 | NUR ---
PT IS CONFUSED AND RAMBLING. PT UNABLE TO ANSWER QUESTIONS. RESPIRATIONS EVEN AND UNLABORED ON RA. LUNGS SOUND CLEAR DIMINISHED. PEDAL PULSES WEAK. ONE TO ONE SITTER AT BEDSIDE FOR PT SAFETY. WILL CONTINUE TO MONITOR.
--- NOTE | 2018-10-10 00:15 | NUR ---
PT RESTING IN BED. RESPIRATIONS EVEN AND UNLABORED ON RA. NO S/S OF DISTRESS AT THIS TIME. SITTER AT BED SIDE FOR PT SAFEYT. WILL CONTINUE TO MONITOR.
--- NOTE | 2018-10-10 04:14 | NUR ---
PT RESTING IN BED. RESPIRATIONS EVEN AND UNLABORED ON RA. NO S/S OF DISTRESS AT THIS TIME. SITTER AT BEDSIDE FOR PT SAFETY. WILL CONTINUE TO MONITOR.
[2018-10-10 04:35] VITALS: BP 140/80
[2018-10-10 08:20] VITALS: BP 139/80
--- NOTE | 2018-10-10 08:20 | NUR ---
ASSESSMENT IS COMPLETED: NO IV SITE. HR IS REG,PULSES ARE STRONG X4, ABD IS SOFT WITH ACTIVE BS. BREATH SOUNDS ARE DIMINISHED. ON RA. DR BATEMAN IN TO VISIT WITH PT. PT NOT SPEAKING ANY INTELLIGIBLE WORDS. CONTINUE TO OBSERVE AND MONITOR.
--- NOTE | 2018-10-10 12:50 | NUR ---
PT IS RELAXING IN BED WITH NO DISTRESS NTOED. IV SITE IS FREE FROM REDNESS OR EDEMA.
[2018-10-10 15:13] VITALS: BP 128/70
--- NOTE | 2018-10-10 16:50 | NUR ---
PT IS RELAXING IN BED SITTER HAS BEEN AT BEDSIDE TODAY, PT HAD STOOL AND INCONTINENT OF URINE.,
[2018-10-10 19:39] VITALS: BP 136/82
--- NOTE | 2018-10-10 22:02 | NUR ---
PT MEDICATED ORDERS PROVIDE. PT IS TALKING ABOUT RANDOM PEOPLE AND THINGS THAT ARE NOT THERE. WHEN ASKED HER NAME SHE REPLIED, "OLIVIA LAYTON." SPEECH IS CLEAR AND AUDIBLE. NO NOTED EDEMA AT THIS ITME. BED ALARM IS ONX2. WILL CONINTUE TO MONITOR.
--- NOTE | 2018-10-10 22:54 | NUR ---
PT TRYING TO GET OUT OF BED, TALKING ABOUT NEEDING TO FIX THE LOCK, APPEARS TO BE TALKING TO POEPLE IN THE ROOM WHO ARE NOT PRESENT. PT MEDICATED ORDERS PROVIDE. BED ALARM ON. PT ASSISTED IN DRINKING PO FLUIDS AT THIS TIME.
--- NOTE | 2018-10-11 01:48 | NUR ---
PT SET BED ALARM OFF, SHE APPEARS TO HAVE MOVED AROUND IN HER SLEEP. NO S/O DISTRESS NOTED. BED ALARM ON.
[2018-10-11 04:00] VITALS: BP 138/83
--- NOTE | 2018-10-11 04:05 | NUR ---
PT CLEANED OF INCONTINENT URINE. BEDDING CHANGED AND PT ASSISTED BACK TO BED. PT TOLERATED WELL HOLDING HER OWN WEIGHT. AIDE IN W/PT AT THIS TIME. OBTAINING V/S. BED ALARM IS ON.
[2018-10-11 08:44] VITALS: BP 114/52
--- NOTE | 2018-10-11 08:44 | NUR ---
IN TO VISIT WITH PT. ASSESSMENT IS COMPLETEDA; BREATH SOUNDS ARE CLEAR,BILATERALLY, HR IS REG,PULSES ARE STRONG X4, ABD IS SOFT WITH ACTIVE BS. CONTINUE TO OSBERVE AND MONITOR.
[2018-10-11 09:03] LABS: HEMATOCRIT 37.4 % (37.0-47.0); HEMOGLOBIN 12.9 g/dl (12.0-16.0); IMMATURE GRANULOCYTES 0.2 % (0.0-5.0); MEAN CELL VOLUME 98.2 fL CALC (80.0-100.0); MEAN CORPUSCULAR HGB 33.9 pG CALC (26.0-32.0); MEAN CORPUSCULAR HGB CONC 34.5 g/L CALC (32.0-36.0); NEUT# 2.85 thou/uL (2.00-7.15); RED BLOOD COUNT 3.81 mill/uL (4.20-5.60); RED CELL DISTRI WIDTH 12.7 % (11.5-15.5)
[2018-10-11 09:24] LABS: ALBUMIN 3.5 g/dL (3.2-5.0); ALKALINE PHOSPHATASE 91 u/l (38-126); ANION GAP 10 (6-22 (CALC)); BILIRUBIN, TOTAL 0.7 mg/dL (0.0-1.4); BUN 12 mg/dL (8-23); BUN/CREATININE RATIO 27 (12-20 (CALC)); CARBON DIOXIDE 29 mmol/l (22-30); CHLORIDE 109 mmol/l (95-108); CREATININE 0.4 mg/dL (0.5-1.0); GFR > 60 ML/MIN (>=60 (CALC)); GFR FOR AFR.AMER. > 60 ML/MIN (>=60 (CALC)); SGOT/AST 18 u/l (9-36); SODIUM 145 mmol/l (137-146); TOTAL PROTEIN 6.4 g/dL (6.3-8.2)
[2018-10-11 09:32] LABS: POTASSIUM 3.4 mmol/l (3.5-5.1)
[2018-10-11 11:10] VITALS: BP 146/84
--- NOTE | 2018-10-11 12:50 | NUR ---
PT IS RESTING MOST OF THE DAY. TOLERATED MEDS THIS AM. FED HERSELF BREAKFAST. CONTINUE TO OSBERVE AND MONITOR,.
[2018-10-11 15:00] VITALS: BP 99/71
--- NOTE | 2018-10-11 16:40 | NUR ---
PT IS RESTING IN BED WITH NO DISTRESS NOTED. IV SITE IS FREE FROM REDNESS OR EDEMA. CONTINUE TO OSBERVE AND MONITOR.
--- NOTE | 2018-10-11 19:18 | NUR ---
PT IS SITTING UPRIGHT IN HIGH FOWLERS POSITION EATING HER DINNER. NO S/O DISTRESS. BED ALARM ON AND CALL LIGHT IS AT HER SIDE W/IN REACH.
[2018-10-11 19:40] VITALS: BP 130/71
--- NOTE | 2018-10-11 20:15 | NUR ---
PT MEDICATED ORDERS PROVIDE AND ASSESSMENT COMPLETED AT THIS TIME. PT PLEASANTLY UNCOOPERATIVE OF ASSESSEMENT. DOES NOT FOLLOW INSTRUCTIONS, IS TALKING WORD SALAD THROUGHOUT ASSESSMENT, SPEECH CLEAR. PT UNABLE TO TELL ME NAME/ AT THIS TIME. JUST SMILES AND STATES SOMETHIMG COMPLETELY UNRELATED TO MY QUESTIONS. BED ALARM IS ON.
--- NOTE | 2018-10-12 00:28 | NUR ---
PT SLEEPING, BED ALARM ON.
[2018-10-12 03:30] VITALS: BP 137/77
--- NOTE | 2018-10-12 03:55 | NUR ---
AIDES IN W/PT PROVIDED FULL BEDBATH AND CATALINA CARE. PT CLEANED OF INCONTINENT URINE.
[2018-10-12 08:25] VITALS: BP 118/85
--- NOTE | 2018-10-12 08:25 | NUR ---
ASSESSMENT IS COMPLETED: HR IS REG,PULSES ARE STRONG X4, ABD IS SOFT WITH ACTIVE BS. BREATH SOUNDS ARE CLEAR, PT REMAINS CONFUSED AND TRYING TO THREAD A NEEDLE. CONTINUE TO OSBERVE AND MONITOR.
--- NOTE | 2018-10-12 10:39 | NUR ---
Miss santacruz in semi fowlers position as enterd room, pt. agrees to participated in therapy session which consisted of functional activites and gait training. Supine to sit/ sit to stand (MOD A) constant VC for safety precautions and correct hand placement. Staic standing pt. has LOB and states she feels wobbly, she takes a min. and states she feels good. Ambualted 30 ft w/ RW (MIN A) VC to keep head up and to pay attention to surroundings as she would walk walker into objects. Stand to sit/sit to supine (MOD A), VC for safety precautions as she descends to a seated position. Pt. responds to telling her she is going to [employer] or [employer]. Pt. in semi-fowlers position as exiting room w/ tray table and call [place] by patient bedside.
--- NOTE | 2018-10-12 12:00 | NUR ---
PT HAS BEEN MORE AWAKE TODAY. FEEDING SELF. AND STRETCHING, CONTINUES TO ACT LIKE SHE WANTS TO SEW WITH A NEEDLE AND TALKING WITH ANIMALS. WONDERING ABOUT HER SON.
[2018-10-12 15:24] VITALS: BP 121/58
--- NOTE | 2018-10-12 16:00 | NUR ---
PT HAS HAD MINIMAL NAPPING TODAY,. NO DISTRESS NOTED. CONTINUE TO OSBERVE AND MONITOE.
--- NOTE | 2018-10-12 17:03 | NUR ---
PT WILL BE DISCHARGED IN THE AM TO [facility].
[2018-10-12 19:49] VITALS: BP 145/64
--- NOTE | 2018-10-12 19:49 | NUR ---
PT CLEANED OF INCONTINENT URINE, BEDDING CHANGED. PT TOLERATED WELL AND STANDS TO HOLD HER OWN WEIGHT. STANDBY ASSIST X2. PT LEFT IN BED W/BED ALARM ON. ASSISTED DRINKING PO FLUIDS ALSO AT THIS TIME.
--- NOTE | 2018-10-12 20:26 | NUR ---
PT MEDIATED W/PILLS CRUSED AND ADDED TO APPLESAUCE. SHE ATE 1/2 CONTAINER OF APPLESAUCE AND DRANK 1/4 CONTAINER OF GRAPE JUICE ALONG W/60CC OF WATER.
--- NOTE | 2018-10-12 23:45 | NUR ---
PT CLEANED OF INCONTINENT URINE AND BEDDING CHANGED. PT ASSISTED W/PO FLUIDS. NO S/O DISTRESS. CALL LIGHT AT SIDE AND BED ALARM ON.
--- NOTE | 2018-10-13 04:28 | NUR ---
MATHEMATICS ACADEMIC CHAIR AND AIDE CLEANED PT OF INCONTINENT URINE. PT ASSISTED DRINKING PO FLUIDS. PT LEFT IN LOW FOWLERS POSITION W/BED ALARM ON AND CALL LIGHT AT HER SIDE W/IN REACH.
[2018-10-13 04:49] VITALS: BP 126/56
[2018-10-13 07:28] VITALS: BP 133/65
--- NOTE | 2018-10-13 07:28 | NUR ---
PT ALERT TO SELF. RESP EVEN AND UNLABORED. LUNG SOUNDS CLEAR/DIMINISHED. BOWEL SOUNDS ACTIVE X4. WEAK RADIAL AND PEDAL PULSES. RASH TO BUTTOCK NOTED. PT DENIES ANY PAIN OR NEEDS. POC DISCUSSED. SAFETY PRECAUTIONS IN PLACE. CALL LIGHT IN REACH. WILL CONTINUE TO MONITOR.
[2018-10-13 07:30] VITALS: BP 133/65
--- NOTE | 2018-10-13 08:00 | NUR ---
D/C INSTRUCTIONS DISCUSSED W/ PT. RETAIL CUSTOMER SERVICE SPECIALIST'S IN TO CLEAN PT UP AND GET PT DRESSED.
[2018-10-13] MEDS ORDERED: B-1100 MG PO (08:27)
--- NOTE | 2018-10-13 08:43 | NUR ---
Discharge instructions given. Patient verbalizes understanding of same. Discharged in stable condition via [facility] with *Other. All belongings sent with pt.
== END 2018-10-13 08:35 | DRG 641 ==
LOC: ICU 15:41 → MS2 10-07 20:05
PROVIDERS: ADMIT Internal Medicine Geriatric Medicine; ATTEND Internal Medicine Geriatric Medicine
DX: E51.2 Wernicke's encephalopathy (principal); F10.151 Alcohol abuse with alcohol-induced psychotic disorder with hallucinations; F10.150 Alcohol abuse with alcohol-induced psychotic disorder with delusions; I10 Essential (primary) hypertension; I25.10 Atherosclerotic heart disease of native coronary artery without angina pectoris; E78.5 Hyperlipidemia, unspecified; F80.2 Mixed receptive-expressive language disorder; K21.9 Gastro-esophageal reflux disease without esophagitis; K27.9 Peptic ulcer, site unspecified, unspecified as acute or chronic, without hemorrhage or perforation; M19.90 Unspecified osteoarthritis, unspecified site; R62.7 Adult failure to thrive; I25.2 Old myocardial infarction; Z68.22 Body mass index [BMI] 22.0-22.9, adult; Z91.81 History of falling; Z95.5 Presence of coronary angioplasty implant and graft
CPT/HCPCS: J2060

== ENCOUNTER 2021-02-17 14:30 | Observation (INO) | payer MEDICARE ==
[~2021-02-17] VITALS: Ht 157.5 cm; Wt 75.0 kg
[~2021-02-17 14:30] MED LIST changes: +ASPIRIN81 MG PO; +ATORVASTATIN CA80 MG PO; +B-1100 MG PO; +CARVEDILOL6.25 MG PO; +FOLIC ACID1 MG PO; +LISINOPRIL2.5 MG PO; +OXYBUTYNIN5 M1 PO; +SEROQUEL25 MG PO; +SPIRONOLACTONE25 MG PO
[2021-02-17 16:06] LABS: HEMATOCRIT 34.1 % (37.0-47.0); IMMATURE GRANULOCYTES 0.7 % (0.0-5.0); MEAN CORPUSCULAR HGB 29.4 pG CALC (26.0-32.0); NEUT# 6.73 thou/uL (2.00-7.15); RED BLOOD COUNT 3.71 mill/uL (4.20-5.60); RED CELL DISTRI WIDTH 12.9 % (11.5-15.5)
[2021-02-17 16:10] LABS: HEMOGLOBIN 10.9 g/dl (12.0-16.0); MEAN CELL VOLUME 91.9 fL CALC (80.0-100.0)
[2021-02-17 16:28] LABS: PROTHROMBIN TIME 10.3 SECONDS (9.0-12.5)
[2021-02-17 16:31] LABS: ALBUMIN 3.9 g/dL (3.2-5.0); CREATININE 1.1 mg/dL (0.5-1.0); POTASSIUM 3.9 mmol/l (3.5-5.1); TOTAL PROTEIN 7.1 g/dL (6.3-8.2)
[2021-02-17 16:33] LABS: BILIRUBIN, TOTAL 0.4 mg/dL (0.0-1.4)
[2021-02-17 17:00] LABS: URINE BILIRUBIN - DIPSTICK NEGATIVE (NEGATIVE); URINE BLOOD DIPSTICK NEGATIVE (NEGATIVE); URINE COLOR YELLOW; URINE GLUCOSE - DIPSTICK NEGATIVE (NEGATIVE); URINE KETONE NEGATIVE (NEGATIVE); URINE LEUK ESTERASE NEGATIVE (NEGATIVE); URINE PROTEIN - DIPSTICK NEGATIVE (NEG-TRACE); URINE SPECIFIC GRAVITY <=1.005; URINE UROBILINOGEN - DIPSTICK 0.2 E.U./dL (0.2)
[2021-02-17 17:02] LABS: URINE NITRITE - DIPSTICK NEGATIVE (Negative)
[2021-02-17] MEDS ORDERED: BUSPAR10 M1 PO (21:56)
[2021-02-17] MEDS ORDERED: CYPROHEPTADINE H4 MG (21:56)
[2021-02-17] MEDS ORDERED: CREON3000 UNIT PO (21:57)
[2021-02-17] MEDS ORDERED: DONEPEZIL10 MG PO (21:57)
[2021-02-17] MEDS ORDERED: QUETIAPINE FUMA25 MG PO (21:58)
[2021-02-17] MEDS ORDERED: FLUOXETINE20 MG PO (21:59)
[2021-02-17] MEDS ORDERED: ANTI-DIARRHE2 M1 PO (21:59)
[2021-02-17 22:15] VITALS: BP 150/98
[2021-02-17 23:00] VITALS: BP 144/58
[2021-02-18] VITALS (10 sets, daily range): BP systolic 111–169; BP diastolic 65–88
[2021-02-18 05:30] LABS: HEMATOCRIT 34.1 % (37.0-47.0); HEMOGLOBIN 11.1 g/dl (12.0-16.0); IMMATURE GRANULOCYTES 0.5 % (0.0-5.0); MEAN CELL VOLUME 91.2 fL CALC (80.0-100.0); MEAN CORPUSCULAR HGB 29.7 pG CALC (26.0-32.0); MEAN CORPUSCULAR HGB CONC 32.6 g/dL CAL (32.0-36.0); NEUT# 4.86 thou/uL (2.00-7.15); RED BLOOD COUNT 3.74 mill/uL (4.20-5.60); RED CELL DISTRI WIDTH 13.2 % (11.5-15.5)
[2021-02-18 06:10] LABS: ALBUMIN 3.3 g/dL (3.2-5.0); ALKALINE PHOSPHATASE 97 u/l (38-126); ANION GAP 8 (6-22 (CALC)); BILIRUBIN, TOTAL 0.3 mg/dL (0.0-1.4); BUN 10 mg/dL (8-23); BUN/CREATININE RATIO 11 (12-20 (CALC)); C-REACTIVE PROTEIN 4.5 mg/dL (0-0.9); CARBON DIOXIDE 28 mmol/l (22-30); CHLORIDE 105 mmol/l (95-108); CREATININE 0.9 mg/dL (0.5-1.0); GFR > 60 ML/MIN (>=60 (CALC)); GFR FOR AFR.AMER. > 60 ML/MIN (>=60 (CALC)); POTASSIUM 3.9 mmol/l (3.5-5.1); SGOT/AST 19 u/l (9-36); SODIUM 138 mmol/l (137-146); TOTAL PROTEIN 6.2 g/dL (6.3-8.2)
[2021-02-18] MEDS ORDERED: DOXYCYCLINE100 MG PO (11:41)
== END 2021-02-18 13:35 | disposition home or self-care (01) ==
LOC: ED 14:30 → ED-I 18:40 → ICU 18:58 → ED 18:58 → ICU 02-18 13:35
PROVIDERS: Emergency Medicine; ADMIT Internal Medicine; ATTEND Internal Medicine
DX: U07.1 COVID-19 (principal); J12.82 Pneumonia due to coronavirus disease 2019; G93.40 Encephalopathy, unspecified; F10.97 Alcohol use, unspecified with alcohol-induced persisting dementia; I10 Essential (primary) hypertension; I25.10 Atherosclerotic heart disease of native coronary artery without angina pectoris; E78.5 Hyperlipidemia, unspecified; F32.A Depression, unspecified; H91.91 Unspecified hearing loss, right ear; K21.9 Gastro-esophageal reflux disease without esophagitis; I25.2 Old myocardial infarction; Z95.5 Presence of coronary angioplasty implant and graft; Z87.891 Personal history of nicotine dependence
CPT/HCPCS: J1650; Q9967

== ENCOUNTER 2021-11-20 16:09 | Emergency (ER) | payer MEDICARE, MEDICAID ==
[2021-11-20] VITALS (9 sets, daily range): BP systolic 113–144; BP diastolic 59–76
[~2021-11-20] VITALS: Ht 157.5 cm; Wt 76.0 kg
[~2021-11-20 16:09] MED LIST changes: +ANTI-DIARRHE2 M1 PO; +BUSPAR10 M1 PO; +CREON3000 UNIT PO; +CYPROHEPTADINE H4 MG; +DONEPEZIL10 MG PO; +DOXYCYCLINE100 MG PO; +FLUOXETINE20 MG PO; +QUETIAPINE FUMA25 MG PO
[2021-11-20 16:59] LABS: HEMATOCRIT 35.8 % (37.0-47.0); HEMOGLOBIN 11.8 g/dl (12.0-16.0); IMMATURE GRANULOCYTES 0.2 % (0.0-5.0); MEAN CELL VOLUME 88.6 fL CALC (80.0-100.0); MEAN CORPUSCULAR HGB 29.2 pG CALC (26.0-32.0); NEUT# 8.56 thou/uL (2.00-7.15); RED BLOOD COUNT 4.04 mill/uL (4.20-5.60); RED CELL DISTRI WIDTH 14.1 % (11.5-15.5)
[2021-11-20 17:04] LABS: URINE BILIRUBIN - DIPSTICK NEGATIVE (NEGATIVE); URINE BLOOD DIPSTICK NEGATIVE (NEGATIVE); URINE COLOR YELLOW; URINE GLUCOSE - DIPSTICK NEGATIVE (NEGATIVE); URINE KETONE NEGATIVE (NEGATIVE); URINE PROTEIN - DIPSTICK NEGATIVE (NEG-TRACE); URINE SPECIFIC GRAVITY 1.015; URINE UROBILINOGEN - DIPSTICK 0.2 E.U./dL (0.2)
[2021-11-20 17:05] LABS: ALKALINE PHOSPHATASE 105 u/l (38-126); BILIRUBIN, TOTAL 0.4 mg/dL (0.0-1.4); BUN 22 mg/dL (8-23); BUN/CREATININE RATIO 21 (12-20 (CALC)); CHLORIDE 101 mmol/l (95-108); CREATININE 1.1 mg/dL (0.5-1.0); GFR FOR AFR.AMER. 59 ML/MIN (>=60 (CALC)); GFR OTHER RACES 49 ML/MIN (>=60 (CALC)); POTASSIUM 3.4 mmol/l (3.5-5.1); SGOT/AST 29 u/l (9-36); SODIUM 132 mmol/l (137-146); TOTAL PROTEIN 6.4 g/dL (6.3-8.2)
[2021-11-20 17:06] LABS: URINE LEUK ESTERASE SMALL (NEGATIVE); URINE NITRITE - DIPSTICK POSITIVE (Negative)
[2021-11-20 17:11] LABS: ALBUMIN 4.1 g/dL (3.2-5.0); ANION GAP 15 (6-22 (CALC)); CARBON DIOXIDE 19 mmol/l (22-30); MAGNESIUM 1.4 mg/dL (1.6-2.3)
[2021-11-20 17:15] LABS: URINE BACTERIA MANY hpf
[2021-11-20] MEDS ORDERED: OMNI-PAC300 MG PO (17:49)
== END 2021-11-20 18:45 | disposition home or self-care (01) ==
LOC: ED 16:09
PROVIDERS: Family Medicine
DX: N39.0 Urinary tract infection, site not specified (principal); I25.10 Atherosclerotic heart disease of native coronary artery without angina pectoris; I10 Essential (primary) hypertension; F10.97 Alcohol use, unspecified with alcohol-induced persisting dementia; E78.5 Hyperlipidemia, unspecified; F32.A Depression, unspecified; H91.91 Unspecified hearing loss, right ear; I25.2 Old myocardial infarction; B96.1 Klebsiella pneumoniae [K. pneumoniae] as the cause of diseases classified elsewhere

== ENCOUNTER 2022-05-14 16:24 | Observation (INO) | payer MEDICARE, MEDICAID ==
[~2022-05-14] VITALS: Ht 157.5 cm; Wt 70.8 kg
[2022-05-14] VITALS (16 sets, daily range): BP systolic 98–175; BP diastolic 53–150
[~2022-05-14 16:24] MED LIST changes: +OMNI-PAC300 MG PO
--- NOTE | 2022-05-14 17:00 | NUR ---
PT ARRIVED TO THE ER FOR CC OF AMS, REPORTED BY PATIENT COMMODITY INDUSTRY ANALYST. PT CONFUSED. RESPONDS TO QUESTIONS AND FOLLOWS COMMANDS. TELE MONITORING IN PROGRESS. VITALS NOTED. FALL AND SAFETY PRECAUTIONS IN PLACE.CALL LIGHT WITH IN REACH. MD NOTIFIED.
[2022-05-14 17:49] LABS: BASO% 0.2 % (0-3); HEMATOCRIT 33.5 % (37.0-47.0); HEMOGLOBIN 10.7 g/dl (12.0-16.0); IMMATURE GRANULOCYTES 0.2 % (0.0-5.0); MEAN CELL VOLUME 90.1 fL CALC (80.0-100.0); MEAN CORPUSCULAR HGB 28.8 pG CALC (26.0-32.0); MEAN CORPUSCULAR HGB CONC 31.9 g/dL CAL (32.0-36.0); MONO% 4.9 % (2-13); NEUT# 12.92 thou/uL (2.00-7.15); NEUT% 88.7 % (42-76); RED BLOOD COUNT 3.72 mill/uL (4.20-5.60); RED CELL DISTRI WIDTH 13.6 % (11.5-15.5)
[2022-05-14 17:58] LABS: ALBUMIN 3.7 g/dL (3.2-5.0); BILIRUBIN, TOTAL 0.3 mg/dL (0.02-1.3); CREATININE 1.2 mg/dL (0.5-1.0); TOTAL PROTEIN 6.4 g/dL (6.3-8.2)
--- NOTE | 2022-05-14 18:56 | NUR ---
8 FR STRAIGHT CATH INSERTED TO OBTAIN URINE SAMPLE. PT TOLERATED WELL. BLOOD NOTED IN ADULT BRIEF, PER CAREGIVER.
[2022-05-14 19:22] LABS: URINE BILIRUBIN - DIPSTICK NEGATIVE (NEGATIVE); URINE BLOOD DIPSTICK SMALL (NEGATIVE); URINE COLOR YELLOW; URINE GLUCOSE - DIPSTICK NEGATIVE (NEGATIVE); URINE KETONE NEGATIVE (NEGATIVE); URINE PROTEIN - DIPSTICK NEGATIVE (NEG-TRACE); URINE SPECIFIC GRAVITY 1.015; URINE UROBILINOGEN - DIPSTICK 0.2 E.U./dL (0.2)
[2022-05-14 19:23] LABS: URINE LEUK ESTERASE MODERATE (NEGATIVE); URINE NITRITE - DIPSTICK POSITIVE (Negative)
[2022-05-14 19:33] LABS: URINE BACTERIA MANY hpf; URINE WBC 50-100 WBC/hpf (0-5)
--- NOTE | 2022-05-14 20:49 | NUR ---
CAREGIVER, PINA OSORIO/LESLY WANTS PT A FULL CODE. DNR ON FILE. LESLY STATES THAT WAS WHEN PT WAS IN PRISON AND DID NOT APPEAR TO BE FUCTIONAL AT THAT TIME. SHE REQUESTED THAT THE DNR BE RECINDED.
[2022-05-14] MEDS ORDERED: MIRTAZAPINE15 MG PO (21:09)
[2022-05-14] MEDS ORDERED: MEMANTINE HYDRO10 MG PO (21:10)
--- NOTE | 2022-05-14 21:29 | NUR ---
REPORT GIVEN TO MAEGAN FRENCH
--- NOTE | 2022-05-14 22:38 | NUR ---
Report rcvd from ED. Pt transported via stretcher. Txto bed. Confused, resting comfortably and calmly. Bed alarm on, bed in lowest position, call light at bedside.
[2022-05-15] VITALS (7 sets, daily range): BP systolic 116–152; BP diastolic 50–79
--- NOTE | 2022-05-15 07:47 | NUR ---
RECIEVED REPORT FROM PM RN. PT RESTING IN BED, ALL SAFETY MEASURES IN PLACE. NO NEEDS AT THIS TIME.
--- NOTE | 2022-05-15 20:00 | NUR ---
RECEIVED REPORT FROM NURSE JANE PATIENT RESTING IN BED, ALERT TO NAME ONLY, UNABLE TO STATE HER LAST NAME OR BIRTHDAY, PATEINT HAS NO IV, NEW IV INSERTED G 22 RFA NS 100CC/HR, ON TELEMETRY, LUNG SOUNDS CLEAR, ACTIVE BOWEL SOUNDS, NOT IN DISTRESS, PATEINT REOIRIENTED TO PLACE TIME. PATIENT CALM AT THIS TIME, BED ALARM IN PLACE.
--- NOTE | 2022-05-16 | NUR ---
PATINET RESTING WITH EEYS CLOSED, BREATHING EVEN UNLABORED, NOT IN DISTRESS BED ALRM IN PLACE.
--- NOTE | 2022-05-16 04:08 | NUR ---
PATIENT RESTING IN BED, EYES CLOSED, BREATHING EVEN UNLABORED CALL LIGHT IN REACH.
[2022-05-16 04:42] VITALS: BP 166/78
--- NOTE | 2022-05-16 05:11 | NUR ---
PATIENT PULLED IV OUT, CATHETER INTACT NEW IV ON LFA G 22, PATENT FLUSHES WELL.
[2022-05-16 05:37] VITALS: BP 166/78
[2022-05-16 05:41] LABS: BASO% 0.5 % (0-3); EOS% 1.5 % (0-8); HEMATOCRIT 35.9 % (37.0-47.0); HEMOGLOBIN 11.6 g/dl (12.0-16.0); IMMATURE GRANULOCYTES 0.4 % (0.0-5.0); LYMPH% 33.4 % (15-41); MEAN CELL VOLUME 91.8 fL CALC (80.0-100.0); MEAN CORPUSCULAR HGB 29.7 pG CALC (26.0-32.0); MEAN CORPUSCULAR HGB CONC 32.3 g/dL CAL (32.0-36.0); MONO% 10.6 % (2-13); NEUT# 2.94 thou/uL (2.00-7.15); NEUT% 53.6 % (42-76); RED BLOOD COUNT 3.91 mill/uL (4.20-5.60); RED CELL DISTRI WIDTH 13.7 % (11.5-15.5)
[2022-05-16 05:58] LABS: ALBUMIN 3.2 g/dL (3.2-5.0); ALKALINE PHOSPHATASE 91 u/l (38-126); ANION GAP 9 (6-22 (CALC)); BILIRUBIN, TOTAL 0.2 mg/dL (0.02-1.3); BUN 15 mg/dL (8-23); BUN/CREATININE RATIO 19 (12-20 (CALC)); CARBON DIOXIDE 27 mmol/l (22-30); CHLORIDE 112 mmol/l (95-108); CREATININE 0.8 mg/dL (0.5-1.0); GFR FOR AFR.AMER. > 60 ML/MIN (>=60 (CALC)); GFR OTHER RACES > 60 ML/MIN (>=60 (CALC)); POTASSIUM 4.1 mmol/l (3.5-5.1); SGOT/AST 24 u/l (9-36); SODIUM 144 mmol/l (137-146); TOTAL PROTEIN 5.8 g/dL (6.3-8.2)
--- NOTE | 2022-05-16 07:28 | NUR ---
RECIEVED REPORT FROM PM RN. PT RESTING IN BED, ALL SAFETY MEASURES IN PLACE. NO NEEDS AT THIS TIME.
[2022-05-16 08:02] VITALS: BP 178/86
[2022-05-16 08:03] VITALS: BP 178/86
[2022-05-16 10:59] VITALS: BP 144/65
[2022-05-16] MEDS ORDERED: KEFLEX500 MG PO (11:42)
== END 2022-05-16 13:32 ==
LOC: ED 16:24 → ED-I 19:30 → ED 19:50 → MS2 19:51
PROVIDERS: Family Medicine; Nurse Practitioner Family; ADMIT Internal Medicine; ATTEND Internal Medicine
DX: N39.0 Urinary tract infection, site not specified (principal); G93.49 Other encephalopathy; F10.97 Alcohol use, unspecified with alcohol-induced persisting dementia; I10 Essential (primary) hypertension; I25.10 Atherosclerotic heart disease of native coronary artery without angina pectoris; I25.2 Old myocardial infarction; E78.5 Hyperlipidemia, unspecified; F32.A Depression, unspecified; H91.91 Unspecified hearing loss, right ear; K21.9 Gastro-esophageal reflux disease without esophagitis; B96.1 Klebsiella pneumoniae [K. pneumoniae] as the cause of diseases classified elsewhere; Z95.5 Presence of coronary angioplasty implant and graft; Z87.891 Personal history of nicotine dependence
CPT/HCPCS: J1650

== ENCOUNTER 2022-05-25 22:20 | Emergency (ER) | payer MEDICARE, MEDICAID ==
[~2022-05-25] VITALS: Ht 157.5 cm; Wt 72.0 kg
[~2022-05-25 22:20] MED LIST changes: +MEMANTINE HYDRO10 MG PO; +MIRTAZAPINE15 MG PO
[2022-05-25 23:21] VITALS: BP 150/76
[2022-05-25 23:30] VITALS: BP 134/68
[2022-05-26] VITALS: BP 152/68
[2022-05-26 00:31] VITALS: BP 141/66
[2022-05-26 01:00] VITALS: BP 130/70
[2022-05-26 01:48] LABS: BASO% 0.5 % (0-3); EOS% 2.4 % (0-8); HEMATOCRIT 33.3 % (37.0-47.0); HEMOGLOBIN 10.7 g/dl (12.0-16.0); IMMATURE GRANULOCYTES 0.1 % (0.0-5.0); LYMPH% 28.6 % (15-41); MEAN CORPUSCULAR HGB 28.9 pG CALC (26.0-32.0); MEAN CORPUSCULAR HGB CONC 32.1 g/dL CAL (32.0-36.0); MONO% 6.3 % (2-13); NEUT# 5.33 thou/uL (2.00-7.15); NEUT% 62.1 % (42-76); RED BLOOD COUNT 3.7 mill/uL (4.20-5.60); RED CELL DISTRI WIDTH 13.8 % (11.5-15.5)
[2022-05-26 01:52] LABS: URINE BILIRUBIN - DIPSTICK NEGATIVE (NEGATIVE); URINE BLOOD DIPSTICK MODERATE (NEGATIVE); URINE COLOR YELLOW; URINE GLUCOSE - DIPSTICK NEGATIVE (NEGATIVE); URINE KETONE NEGATIVE (NEGATIVE); URINE LEUK ESTERASE TRACE (NEGATIVE); URINE PH 6.5 (4.5-8.0); URINE PROTEIN - DIPSTICK NEGATIVE (NEG-TRACE); URINE UROBILINOGEN - DIPSTICK 0.2 E.U./dL (0.2)
[2022-05-26 01:54] LABS: URINE NITRITE - DIPSTICK POSITIVE (Negative)
[2022-05-26 01:59] LABS: URINE BACTERIA MANY hpf; URINE SQUAMOUS EPITHELIAL CELL FEW EPI/hpf (0-FEW); URINE WBC 20-50 WBC/hpf (0-5)
[2022-05-26 02:00] LABS: URINE MUCUS FEW hpf (NONE-FEW)
[2022-05-26 02:04] LABS: ALBUMIN 3.7 g/dL (3.2-5.0); ALKALINE PHOSPHATASE 104 u/l (38-126); ANION GAP 9 (6-22 (CALC)); BILIRUBIN, TOTAL 0.2 mg/dL (0.02-1.3); BUN 14 mg/dL (8-23); BUN/CREATININE RATIO 16 (12-20 (CALC)); CARBON DIOXIDE 30 mmol/l (22-30); CHLORIDE 107 mmol/l (95-108); CREATININE 0.9 mg/dL (0.5-1.0); GFR FOR AFR.AMER. > 60 ML/MIN (>=60 (CALC)); GFR OTHER RACES > 60 ML/MIN (>=60 (CALC)); POTASSIUM 3.6 mmol/l (3.5-5.1); SGOT/AST 21 u/l (9-36); SODIUM 142 mmol/l (137-146); TOTAL PROTEIN 6.4 g/dL (6.3-8.2)
[2022-05-26 04:28] VITALS: BP 130/70
[2022-05-26] MEDS ORDERED: KEFLEX500 MG PO (04:28)
== END 2022-05-26 04:40 | disposition home or self-care (01) ==
LOC: ED 22:20
PROVIDERS: Emergency Medicine
DX: N93.9 Abnormal uterine and vaginal bleeding, unspecified (principal); N39.0 Urinary tract infection, site not specified; B96.20 Unspecified Escherichia coli [E. coli] as the cause of diseases classified elsewhere; F03.90 Unspecified dementia, unspecified severity, without behavioral disturbance, psychotic disturbance, mood disturbance, and anxiety; I10 Essential (primary) hypertension; I25.10 Atherosclerotic heart disease of native coronary artery without angina pectoris; E78.5 Hyperlipidemia, unspecified; F32.A Depression, unspecified; H91.91 Unspecified hearing loss, right ear; I25.2 Old myocardial infarction; Z16.12 Extended spectrum beta lactamase (ESBL) resistance
CPT/HCPCS: Q9967

== ENCOUNTER 2023-02-15 23:08 | Emergency (ER) | payer MEDICARE, OTHER ==
[~2023-02-15] VITALS: Ht 157.5 cm; Wt 64.0 kg
[2023-02-16] VITALS (17 sets, daily range): BP systolic 101–187; BP diastolic 43–94
== END 2023-02-16 10:29 ==
LOC: ED 23:08
DX: S42.294A Other nondisplaced fracture of upper end of right humerus, initial encounter for closed fracture (principal); I10 Essential (primary) hypertension; I25.10 Atherosclerotic heart disease of native coronary artery without angina pectoris; E78.5 Hyperlipidemia, unspecified; F32.A Depression, unspecified; F03.90 Unspecified dementia, unspecified severity, without behavioral disturbance, psychotic disturbance, mood disturbance, and anxiety; W06.XXXA Fall from bed, initial encounter

== ENCOUNTER 2024-02-13 16:55 | Inpatient (IN) | payer MEDICARE ==
[~2024-02-13] VITALS: Ht 157.5 cm; Wt 70.3 kg
[2024-02-13] VITALS (7 sets, daily range): BP systolic 111–141; BP diastolic 61–71
[~2024-02-13 16:55] MED LIST changes: -CYPROHEPTADINE H4 MG; +CYPROHEPTADINE H4 MG PO; +OMNICEF300 MG PO
--- NOTE | 2024-02-13 16:55 | NUR ---
PATIENT TO ROOM 12 VIA EMS STRETCHER. PATIENT UNDRESSED INTO A GOWN, PLACED ON MONITOR. PATIENT DIAPER REMOVED AND CLEANED. PATIENT STRAIGHT CATHED FOR URINE. RECTAL TEMP OBTAINED. TRIAGE COMPLETED FROM PREVIOS VISITS PATIENT IS CONFUSED AND UNABLE TO ANSWER QUESTIONS. AWAITING DAUGHTER ARRIVAL TO DISCUSS HOME MEDS.
[2024-02-13] MEDS ORDERED: cefTRIAXone SODIUM 2 GM in SODIUM CHLORIDE 0.9% 100 ML IV ONE (17:05)
[2024-02-13] MEDS ORDERED: SODIUM CHLORIDE 0.9% 1,000 ML IV ONE (17:05)
[2024-02-13] MEDS ORDERED: ACETAMINOPHEN 1,000 MG/100 ML VIAL IV ONE (17:15)
--- NOTE | 2024-02-13 17:35 | NUR ---
PT STABLE AT THIS TIME. NO ACUTE DISTRESS. PT WITH A PERSISTANT COUGH NOTED. EDP AWARE OF PT CONDITION. RR-18 O2 SAT 94% ON RA. PT POSSIBLE ADMISSON. CONTINUE TO MAINTAIN COMFORT MEAUSRES AND SAFETY PRECAUTIONS.
[2024-02-13 17:47] LABS: BASO% 0.1 % (0-3); EOS% 0.3 % (0-8); HEMATOCRIT 34.6 % (37.0-47.0); HEMOGLOBIN 11.1 g/dl (12.0-16.0); IMMATURE GRANULOCYTES 0.2 % (0.0-5.0); LYMPH% 9.5 % (15-41); MEAN CORPUSCULAR HGB 28.2 pG CALC (26.0-32.0); MEAN CORPUSCULAR HGB CONC 32.1 g/dL CAL (32.0-36.0); MONO% 6.2 % (2-13); NEUT# 15.8 thou/uL (2.00-7.15); NEUT% 83.7 % (42-76); RED BLOOD COUNT 3.93 mill/uL (4.20-5.60)
[2024-02-13 17:52] LABS: URINE BILIRUBIN - DIPSTICK Negative (NEGATIVE); URINE BLOOD DIPSTICK Negative (NEGATIVE); URINE COLOR Yellow; URINE GLUCOSE - DIPSTICK Negative (NEGATIVE); URINE KETONE 15 mg/dL (NEGATIVE); URINE LEUK ESTERASE Small (NEGATIVE); URINE NITRITE - DIPSTICK Positive (Negative); URINE PROTEIN - DIPSTICK Trace mg/dL (NEG-TRACE); URINE UROBILINOGEN - DIPSTICK 0.2 E.U./dL (0.2)
[2024-02-13 17:59] LABS: URINE BACTERIA MANY hpf; URINE RBC 0-2 RBC/hpf (0-5); URINE WBC 50-100 WBC/hpf (0-5)
--- NOTE | 2024-02-13 18:02 | NUR ---
PT 4TH GRADE MATH TEACHER OF POA IN WITH PT AT THIS TIME. DISCUSSED PLAN OF CARE AT THIS TIME. [facility]. PT POA VERBALIZED UNDERSTANDING.
[2024-02-13 18:11] LABS: BILIRUBIN, TOTAL 0.3 mg/dL (0.02-1.3); CREATININE 0.7 mg/dL (0.5-1.0); TOTAL PROTEIN 6.4 g/dL (6.3-8.2)
[2024-02-13 18:12] LABS: ALBUMIN 3.2 g/dL (3.2-5.0); POTASSIUM 3.4 mmol/l (3.5-5.1)
[2024-02-13] MEDS ORDERED: AZITHROMYCIN 500 MG in SODIUM CHLORIDE 0.9% 250 ML IV ONE (18:40)
[2024-02-13] MEDS ORDERED: SODIUM CHLORIDE 0.9% 500 ML IV ONE (18:54)
[2024-02-13] MEDS ORDERED: AZITHROMYCIN 500 MG/VIAL SDV IV ONE (18:54)
[2024-02-13] MEDS ORDERED: ASPIRINCHW 81MG PO (19:07)
[2024-02-13] MEDS ORDERED: ROSUVASTATIN CA10 MG PO (19:07)
[2024-02-13] MEDS ORDERED: STOOL SOFTENER100 M1 PO (19:08)
--- NOTE | 2024-02-13 20:37 | NUR ---
REPORT GIVEN TO Pete ADHIKARI RN
--- NOTE | 2024-02-13 21:17 | NUR ---
PATIENT TRASNPORTED TO [facility] ROOM 271. CARE HANDED OVER TO Pete ADHIKARI RN
[2024-02-13] MEDS ORDERED: ACETAMINOPHEN 325 MG/TAB PO PRN (21:25)
[2024-02-13] MEDS ORDERED: LACTATED RINGER'S 1,000 ML IV PRN (21:25)
[2024-02-13] MEDS ORDERED: Polyethylene Glycol 3350 17 GM/PKT PO PRN (21:25)
[2024-02-13] MEDS ORDERED: CEFEPIME HYDROCHLORIDE 2 GM in SODIUM CHLORIDE 0.9% 100 ML IV SCH (21:40)
[2024-02-14] VITALS (9 sets, daily range): BP systolic 128–157; BP diastolic 52–85
[2024-02-14 04:37] LABS: BASO% 0.1 % (0-3); EOS% 0.7 % (0-8); HEMATOCRIT 33.4 % (37.0-47.0); HEMOGLOBIN 10.6 g/dl (12.0-16.0); IMMATURE GRANULOCYTES 0.8 % (0.0-5.0); LYMPH% 10.7 % (15-41); MEAN CORPUSCULAR HGB 28.9 pG CALC (26.0-32.0); MEAN CORPUSCULAR HGB CONC 31.7 g/dL CAL (32.0-36.0); MONO% 7.2 % (2-13); NEUT# 11.53 thou/uL (2.00-7.15); NEUT% 80.5 % (42-76); RED BLOOD COUNT 3.67 mill/uL (4.20-5.60); RED CELL DISTRI WIDTH 13.9 % (11.5-15.5)
[2024-02-14 05:03] LABS: ALBUMIN 2.8 g/dL (3.2-5.0); BILIRUBIN, TOTAL 0.2 mg/dL (0.02-1.3); CREATININE 0.6 mg/dL (0.5-1.0); MAGNESIUM 1.9 mg/dL (1.6-2.3); POTASSIUM 3.4 mmol/l (3.5-5.1); TOTAL PROTEIN 5.9 g/dL (6.3-8.2)
--- NOTE | 2024-02-14 08:40 | NUR ---
PATIENT IS AWAKE IN BED; CONFUSED WITH NO ISSUES; NO S.S OF DISTRESS AT THS TIME; HEAD TO TOE COMPLETED; FOOD BROKER IS FEEDING PATIENT; TELE LEADS INTACT AND WORKING WITH NOISSUES; IV SITE CLEAN AND INATCT SALINE LOCKED WITH NO ISSUES; CALL LIGHT WITHIN REACH, BED IN LOWEST POSTION;SAFETY MEASURES IN PLACE; BED ALARM ACTIAVTED
[2024-02-14] MEDS ORDERED: CEFEPIME HYDROCHLORIDE 2 GM in SODIUM CHLORIDE 0.9% 100 ML IV SCH ×2 (10:00→18:00)
--- NOTE | 2024-02-14 12:15 | NUR ---
PATIENT IN BED ATTEMPTING TO EAT LUNCH; NO S.S OF DISTRESS AT THIS TIME; IV SITE CLEAN AND INTCAT RUNNING WITH LR @100; TELE LEADS IN TACT; CALL LIGT WITHIN REACH; BED MONICA LOWEST POSTION;SAFETY MEASURES IN PLACE; BED ALARM ACTIAVTED
[2024-02-14] MEDS ORDERED: QUEtiapine FUMERATE 25 MG/TAB PO SCH (13:00)
[2024-02-14] MEDS ORDERED: DONEPEZIL HCL 5 MG/TAB PO SCH (13:00)
[2024-02-14] MEDS ORDERED: MEMANTINE Hydrochloride 10 MG/TAB PO SCH (13:00)
[2024-02-14] MEDS ORDERED: busPIRone HCL 5 MG/TAB PO SCH (15:00)
--- NOTE | 2024-02-14 15:49 | NUR ---
PATIENT IS LAYING SEMI GARCIA IN BED; ROOM AIR; BREATHING UNLABORED; PATIENT IS CONFUSED AT THIS TIME; TELE LEADS IN TACT AND WORKING; NO S.S OF DISTRESS; CALL LIGHT WITHIN REACH, BED IN LOWEST POSTION;SAFETY MEASURES IN PLACE; BED ALARM ACTIVATED;
[2024-02-14] MEDS ORDERED: AZITHROMYCIN 500 MG in SODIUM CHLORIDE 0.9% 250 ML IV SCH (17:00)
--- NOTE | 2024-02-14 17:37 | NUR ---
DAIANAEINPete CRAMER FOR 1700, IS LATE DUE TO PHARMACY ISSUES, INFORMED THEY WILL BRING IT WHEN IT COMES
[2024-02-14] MEDS ORDERED: ENOXAPARIN SODIUM 40 MG/0.4 ML SYR SC SCH (21:00)
[2024-02-14] MEDS ORDERED: MIRTAZAPINE 15 MG/TAB PO SCH (21:00)
[2024-02-15] VITALS (7 sets, daily range): BP systolic 118–172; BP diastolic 52–80
[2024-02-15 05:08] LABS: BASO% 0.2 % (0-3); EOS% 1.3 % (0-8); HEMATOCRIT 30.8 % (37.0-47.0); IMMATURE GRANULOCYTES 0.3 % (0.0-5.0); LYMPH% 15.6 % (15-41); MEAN CELL VOLUME 89.5 fL CALC (80.0-100.0); MEAN CORPUSCULAR HGB 29.1 pG CALC (26.0-32.0); MEAN CORPUSCULAR HGB CONC 32.5 g/dL CAL (32.0-36.0); MONO% 6.6 % (2-13); NEUT# 7.62 thou/uL (2.00-7.15); RED BLOOD COUNT 3.44 mill/uL (4.20-5.60); RED CELL DISTRI WIDTH 13.9 % (11.5-15.5)
[2024-02-15 05:22] LABS: ALBUMIN 2.1 g/dL (3.2-5.0); BILIRUBIN, TOTAL 0.2 mg/dL (0.02-1.3); CREATININE 0.6 mg/dL (0.5-1.0); MAGNESIUM 1.8 mg/dL (1.6-2.3); POTASSIUM 3.4 mmol/l (3.5-5.1); TOTAL PROTEIN 4.9 g/dL (6.3-8.2)
--- NOTE | 2024-02-15 08:57 | NUR ---
PATIENT A/OX1; ROOM AIR; BREATHING UNLABORED AND EVEN; NO S.S OF DISTRESS AT THIS TIME; TELE LEADS INTACT AND RUNNING WITH LR @100; HEAD TO TOE COMPLETED; HAD TO CRUSH PATIENT MEDICATION FOR ADMIN , DUE TO PATIENT SPITTING PILLS OUT; FEMALE TC WORKING WITH NO ISSUES; CALL SANDIP SALINAS, VERBALIZED UNDERSTANDING ON HOW TO USE,PERSONAL ITEMS WITHIN REACH; BED IN LOWEST POSTION;SAFETY MEASURES IN PLACE; BED ALAR ACTIAVTED
[2024-02-15] MEDS ORDERED: Meropenem 1 GM in SODIUM CHLORIDE 0.9% 100 ML IV SCH ×2 (12:00→22:00)
--- NOTE | 2024-02-15 12:51 | NUR ---
PATEINT IS A/O X1; SERINA AIR; BREATHING UNLABORED; PATIENT CAREGIVER IS IN ROOM ATTEMPTING TO EAT LUNCH; NO S.S OF DISTRESS AT THIS TIMEL; IV SITE WAS PULLED OUT BY PATIENT, WILL APPLIED A NEW SITE; TELE LEADS INTACT AND WORKING WITH NO ISSUES; PATEINT SITTING IN SEMI GARCIA POSION INBED; CALL LIGHT WITHIN REACH, VERBALIZED UNDERSTANDING ON HOW TO USE, PERSONAL ITEMS WITHIN REACH; BED IN LOWEST POSTION;SAFET MEASURES IN PLACE
--- NOTE | 2024-02-15 16:48 | NUR ---
PATIENT IS IN BED, A.O X1; ROOM AIR; BREATHING UNLABORED AND EVEN; NO S.S OF DISTRESS; NO IV SITE AT THIS TIME; SEVERAL TIME WE HAVE ATTEMPTED TO PUT IN A NEW IV SITE AND HAVE NOT BE IN LOWEST POSTION; TELE LEADS INTACT AND AND WORKING; CALL LIHT WITHIN REACH, VERBALIZED UNDEERSTADNING ON HOW TO USE, MICHELLE IN LOWEST POSTION;SAFETY MEASURES IN PLACE
--- NOTE | 2024-02-15 20:00 | NUR ---
RECEIVED RPEORT FROM NURSE SHEPHERD, PATIENT ALERT TO SELF ONLY, ON ISOLATION FOR ESBL, PATIENT IS HARD OF HEARING, IV INFUSING WELL NS @ 100CC/HR, ON TELEMETRY. BREATHING EVEN UNALBORED. COUGHING NOTED NON PRODUCTIVE, BED ALARM IN PLACED.
[2024-02-16] VITALS (8 sets, daily range): BP systolic 142–167; BP diastolic 62–92
--- NOTE | 2024-02-16 | NUR ---
PATIENT AWAKE, WATCHING TV, NO DISCOMFORTS NOTED AT THIS TIME, AFEBRILE, BED ALARM IN PLACED.
--- NOTE | 2024-02-16 04:00 | NUR ---
PATIENT RESTING IN BED, EYES CLOSED, INCONTINENT CARE PROVIDED, LINENS CHANGED, BED ALARM IN PLACED.
[2024-02-16 07:36] LABS: BASO% 0.4 % (0-3); EOS% 2.4 % (0-8); HEMATOCRIT 36.1 % (37.0-47.0); HEMOGLOBIN 10.9 g/dl (12.0-16.0); IMMATURE GRANULOCYTES 0.6 % (0.0-5.0); LYMPH% 18.5 % (15-41); MEAN CORPUSCULAR HGB 28.1 pG CALC (26.0-32.0); MEAN CORPUSCULAR HGB CONC 30.2 g/dL CAL (32.0-36.0); MONO% 5.9 % (2-13); NEUT# 5.65 thou/uL (2.00-7.15); NEUT% 72.2 % (42-76); RED BLOOD COUNT 3.88 mill/uL (4.20-5.60); RED CELL DISTRI WIDTH 13.9 % (11.5-15.5)
[2024-02-16 08:15] LABS: ALBUMIN 2.3 g/dL (3.2-5.0); CREATININE 0.5 mg/dL (0.5-1.0); MAGNESIUM 1.8 mg/dL (1.6-2.3); POTASSIUM 3.3 mmol/l (3.5-5.1); TOTAL PROTEIN 5.2 g/dL (6.3-8.2)
[2024-02-16 08:18] LABS: BILIRUBIN, TOTAL 0.4 mg/dL (0.02-1.3)
--- NOTE | 2024-02-16 19:50 | NUR ---
PT RESTING IN BED NO DISTRESS NOTED. PT NOT ABLE TO LET NEEDS KNOW ONLY ALERT TO SELF. PT NEEDING TO BE TOLD MULTIPLE TIMES TO SWALLOW HER MEDICATION. IV FLUSHED WORKING PROPERLY WITH FLUIDS ONGOING. PUREWICK IN PLACE WORKING PROPERLY WITH MILD PERIAREA IRRITATION NO EDEMA NOTED. CALL LIGHT WITHIN REACH. BED ALARM ON. PLAN OF CARE ONGOING.
[2024-02-16] MEDS ORDERED: CYPROHEPTADINE HCL 4 MG TAB PO SCH (21:00)
--- NOTE | 2024-02-17 | NUR ---
PT SLEEPING BREATHING EVENLY NO DISTRESS NOTED. CALL LIGHT WITHIN REACH. BED ALARM ON. PLAN OF CARE ONGOING.
--- NOTE | 2024-02-17 03:50 | NUR ---
PT RESTING NO DISTRESS NOTED ON EXAM. CALL LIGHT WITHIN REACH. PLAN OF CARE ONGOING.
[2024-02-17 04:55] LABS: BASO% 0.6 % (0-3); HEMOGLOBIN 9.3 g/dl (12.0-16.0); IMMATURE GRANULOCYTES 0.3 % (0.0-5.0); LYMPH% 25.9 % (15-41); MEAN CORPUSCULAR HGB 28.5 pG CALC (26.0-32.0); MEAN CORPUSCULAR HGB CONC 32.6 g/dL CAL (32.0-36.0); MONO% 8.1 % (2-13); NEUT# 4.31 thou/uL (2.00-7.15); NEUT% 62.1 % (42-76); RED BLOOD COUNT 3.26 mill/uL (4.20-5.60); RED CELL DISTRI WIDTH 13.8 % (11.5-15.5)
[2024-02-17 05:00] VITALS: BP 140/61
[2024-02-17 05:04] LABS: CREATININE 0.6 mg/dL (0.5-1.0); HEMATOCRIT 28.5 % (37.0-47.0); MAGNESIUM 1.8 mg/dL (1.6-2.3); POTASSIUM 3.3 mmol/l (3.5-5.1); TOTAL PROTEIN 4.5 g/dL (6.3-8.2)
[2024-02-17 05:05] LABS: MEAN CELL VOLUME 87.4 fL CALC (80.0-100.0)
[2024-02-17 05:20] LABS: BILIRUBIN, TOTAL 0.2 mg/dL (0.02-1.3)
[2024-02-17 07:31] VITALS: BP 186/84
[2024-02-17 11:14] VITALS: BP 150/93
[2024-02-17] MEDS ORDERED: BACTRIM DS1 TAB PO (13:02)
[2024-02-17 15:10] VITALS: BP 162/73
[2024-02-17] MEDS ORDERED: SODIUM CHLORIDE 0.9% 100 ML IV ONE (17:14)
[2024-02-17] MEDS ORDERED: amLODIPine BESYLATE 5 MG/TAB PO SCH (17:30)
[2024-02-17 18:30] VITALS: BP 169/81
[2024-02-18] VITALS: BP 181/89
[2024-02-18 04:00] VITALS: BP 191/92
--- NOTE | 2024-02-18 04:28 | NUR ---
RESTING QUIETLY EYES CLOSED, NO DISTRESS NOTED. BED IN LOW POSITION, ALARM ACTIVE. CALL LIGHT WITHIN REACH.
--- NOTE | 2024-02-18 05:45 | NUR ---
BP ELEVATED, PROVIDER NOTIFIED. INSTRUCTED TO ADMINISTER A.M NORVASC NOW..
[2024-02-18 07:02] LABS: ALBUMIN 2.4 g/dL (3.2-5.0); BILIRUBIN, TOTAL 0.5 mg/dL (0.02-1.3); CREATININE 0.5 mg/dL (0.5-1.0); MAGNESIUM 1.8 mg/dL (1.6-2.3); POTASSIUM 4.5 mmol/l (3.5-5.1); TOTAL PROTEIN 5.5 g/dL (6.3-8.2)
[2024-02-18 07:25] VITALS: BP 151/78
[2024-02-18 07:43] LABS: BASO% 0.4 % (0-3); EOS% 2.1 % (0-8); HEMOGLOBIN 11.1 g/dl (12.0-16.0); IMMATURE GRANULOCYTES 0.3 % (0.0-5.0); LYMPH% 22.5 % (15-41); MEAN CELL VOLUME 85.9 fL CALC (80.0-100.0); MEAN CORPUSCULAR HGB 27.5 pG CALC (26.0-32.0); MEAN CORPUSCULAR HGB CONC 32.1 g/dL CAL (32.0-36.0); MONO% 5.5 % (2-13); NEUT# 5.28 thou/uL (2.00-7.15); NEUT% 69.2 % (42-76); RED BLOOD COUNT 4.03 mill/uL (4.20-5.60); RED CELL DISTRI WIDTH 13.6 % (11.5-15.5)
[2024-02-18 07:44] LABS: HEMATOCRIT 34.6 % (37.0-47.0)
--- NOTE | 2024-02-18 08:00 | NUR ---
Patient sitting in bed with caregiver at bedside.
[2024-02-18] MEDS ORDERED: SULFAMETHOXAZOLE W/TRIMETHOPRI 1 COMBO TAB PO SCH (10:00)
[2024-02-18 10:55] VITALS: BP 137/70
--- NOTE | 2024-02-18 12:00 | NUR ---
Patient sitting in recliner with caregiver at bedside.
--- NOTE | 2024-02-18 16:30 | NUR ---
Patient sitting in recliner watching television.
--- NOTE | 2024-02-18 18:31 | NUR ---
Discharge instructions reviewed with patient's caregiver whom verbalized understanding.
--- NOTE | 2024-02-21 10:03 | NUR ---
Discharge follow up call completed 02/21/24. Caregive states patient is doing okay but intermittently unable or unwilling to ambulate or stand. Home Health has seen patient and PT is scheduled to visit today. Patient is taking prescribed medication as directed. Caregiver plans to contact PCP today and schedule a follow up appointment for the patient as soon as possible. Uday is hopeful the therapist coming today will be able to assess patient and offer assistance regarding her mobility. No other need or concerns vrbalized at this time.
== END 2024-02-18 18:30 | disposition home health service (06) | DRG 871 ==
LOC: ED 16:55 → ED-I 17:15 → ED 18:39 → MS2 18:40
PROVIDERS: Family Medicine; Nurse Practitioner Family; ADMIT Internal Medicine; ATTEND Internal Medicine
DX: A41.9 Sepsis, unspecified organism (principal); J18.9 Pneumonia, unspecified organism; N39.0 Urinary tract infection, site not specified; B37.49 Other urogenital candidiasis; Z16.12 Extended spectrum beta lactamase (ESBL) resistance; B96.20 Unspecified Escherichia coli [E. coli] as the cause of diseases classified elsewhere; I10 Essential (primary) hypertension; I25.10 Atherosclerotic heart disease of native coronary artery without angina pectoris; F03.90 Unspecified dementia, unspecified severity, without behavioral disturbance, psychotic disturbance, mood disturbance, and anxiety; E78.5 Hyperlipidemia, unspecified; I25.2 Old myocardial infarction; F32.A Depression, unspecified; K21.9 Gastro-esophageal reflux disease without esophagitis; Z87.891 Personal history of nicotine dependence; Z95.5 Presence of coronary angioplasty implant and graft
CPT/HCPCS: J0131; J0456; J0692; J0696; J1650